=== PATIENT | female | born 1995 | race Caucasian/White ===

== ENCOUNTER 2024-04-04 10:27 | Outpatient (CLI) | payer OTHER, SELFPAY ==
--- NOTE | 2024-04-04 10:59 | ECG_ITS ---
Test Date: 2024-04-04 11:06:36 Measurements Intervals [place] Rate: 70 P: 65 IN: 127 QRS: 78 QRSD: 92 T: 55 QT: 356 QTc: 386 Interpretive Statements SINUS RHYTHM WITH SINUS ARRHYTHMIA POSSIBLE RIGHT VENTRICULAR CONDUCTION DELAY [RSR (QR) IN V1/V2] WITHIN NORMAL LIMITS No previous ECG available for comparison Electronically Signed On 04-05-2024 07:21:35 CDT by Charanjit Camilo M.D.
[2024-04-04 11:22] LABS: Basophils Percent Auto 0.3 % (0.2-1.2); Eosinophils Absolute Auto 0.1 K/mm3 (0-0.3); Hematocrit 37.4 % (37.0-47.0); Hemoglobin 13.2 g/dL (12.0-15.0); Immature Granulocyte Absolute 0.03 K/mm3 (0.00-0.031); Immature Granulocyte Percent A 0.4 % (0-0.5); Lymphocytes Absolute Auto 1.57 K/mm3 (0.9-3.2); Lymphocytes Percent Auto 21.4 % (18.3-44.2); Mean Corpuscular HGB Conc 35.3 g/dl (32-36); Mean Corpuscular Volume 90.6 fl (80-100); Mean Platelet Volume 10.1 fl (7.4-10.4); Monocytes Absolute Auto 0.5 K/mm3 (0.1-0.6); Monocytes Percent Auto 7.3 % (2.6-8.5); Neutrophils Absolute Auto 5.1 K/mm3 (1.3-6.7); Neutrophils Percent Auto 69.6 % (45.5-73.1); Platelet Count Result 166 k/mm3 (150-375); Red Blood Count 4.13 M/mm3 (4.2-5.4); Red Cell Distribution Width 13.2 % (11.5-14.5); White Blood Count 7.4 K/mm3 (4.5-10.0)
[2024-04-04 11:36] LABS: Alanine Aminotransferase 13 U/L (6-35); Albumin Level 4.1 g/dL (3.5-5.1); Alkaline Phosphatase 42 U/L (38-126); Anion Gap 7 mmol/L (4-12); Aspartate Amino Transferase 23 U/L (14-36); Bilirubin,Total 0.4 mg/dL (0.2-1.3); Blood Urea Nitrogen 9 mg/dL (7-17); Calcium 9.2 mg/dL (8.4-10.2); Carbon Dioxide 26 mmol/L (22-30); Chloride 101 mmol/L (98-107); Estimated Glomerular Filt Rate > 60; Glucose 80 mg/dL (65-110); Potassium 4.2 mmol/L (3.4-5.0); Sodium 134 mmol/L (137-145)
[2024-04-04 11:48] LABS: Hemoglobin A1C 4.6 % (<5.7)
[2024-04-04 12:03] LABS: Thyroid Stimulating Hormone 0.387 uIU/mL (0.465-4.680)
[2024-04-04 12:12] LABS: HIV 1/2 Ab P24 Ag Result Negative (Negative)
[2024-04-04 12:14] LABS: Free T4 Free Thyroxine 1.16 ng/mL (0.78-2.19)
[2024-04-04 12:38] LABS: Hepatitis B Surface Anti Res Negative; Hepatitis C Virus Antibody Negative (Negative)
[2024-04-04 13:09] LABS: Rubella IgG Antibody > 120.0 IU/ML
[2024-04-04 16:07] LABS: Rapid Plasma Reagin Non-Reactive (NonReactive)
== END 2024-04-04 10:28 | disposition home or self-care (01) ==
LOC: ANHLAB 10:39
PROVIDERS: Visit Provider Obstetrics & Gynecology Gynecology
DX: Z36.9 Encounter for antenatal screening, unspecified (principal); R00.2 Palpitations
CPT/HCPCS: 36415; 80053; 82306; 82728; 83036; 84439; 84443; 85025; 86592; 86703; 86706; 86762; 86803; 86850; 86900; 86901; 93005; G0432

== ENCOUNTER 2024-05-02 15:49 | Outpatient (CLI) | payer BC, SELFPAY ==
--- NOTE | ~2024-05-02 | US_ITS ---
EXAMINATION: US OB /maternal detail DATE: 05/02/2024 16:36 INDICATION: anatomic survey. TECHNIQUE: Real-time ultrasound of the pelvis was performed. COMPARISON: None. FINDINGS: There is a single living fetus in breech presentation. The placenta is anterior, 7.5 cm from the cer vix. heart rate is 147 beats per minute (bpm). The cervical length is 3.0 cm on transabdominal images, which is normal. The amniotic fluid volume is subjectively normal. The following biometric data were obtained: Biparietal diameter (BPD): 4.4 cm; head circumference (HC): 16.1 cm; abdominal circumference (AC): 13 .1 cm; femur length (FL): 2.6 cm. These measurements are concordant. Estimated weight is 236 g +/- 35 g, which correlates with the 26th percentile when 09/28/24 is u sed as estimated date of delivery. As single measurements, these parameters are each equal to the following estimated gestational ages: BPD: 19 weeks 1 days. HC: 18 weeks 6 days. AC: 18 weeks 4 days. FL: 17 weeks 6 days. estimated gestational age based solely on measurements from this exam is 18 weeks 4 days +/- 1 weeks 2 days. The cerebral ventricles, cerebellum, cisterna magna, nuchal fold, and spine are normal. The heart is normal. The diaphragm, stomach, kidneys, and bladder are normal. There are two umbilical arteries to yield a 3-vessel cord. The cord insertion is normal. IMPRESSION: 1. Single living fetus in breech presentation. 2. Estimated weight is 236 g +/- 35 g, which correlates with the 26th percentile when 09/28/24 is used as estimated date of delivery. 3. Normal anatomic survey. Reviewed, dictated and finalized at location A. IMPRESSION: 1. Single living fetus in breech presentation. 2. Estimated weight is 236 g +/- 35 g, which correlates with the 26th pe rcentile when 09/28/24 is used as estimated date of delivery. 3. Normal anatomic survey.
== END 2024-05-02 15:50 | disposition home or self-care (01) ==
PROVIDERS: PCP Advanced Practice Midwife; Visit Provider Advanced Practice Midwife
DX: Z36.9 Encounter for antenatal screening, unspecified (principal); Z3A.18 18 weeks gestation of pregnancy
CPT/HCPCS: 76805

== ENCOUNTER 2024-07-13 13:52 | Observation (INO) | payer BC, SELFPAY ==
--- NOTE | 2024-07-13 13:52 | LDADM ---
This patient, Rosibel Middleton, was admitted to [facility] on 07/13/24 at 13:52. Plans for labor, pain management and were discussed with patient. Patient/family oriented to hospital policies and general routines including ID bracelet, bed and alarms, visiting hours, pain management, procedures, bathroom and other care routines, personal items, smoking policy, room service/diet and guest tray routines, infant security routines, and visiting hours. Patient/Family are encouraged to report perceived risks to care and to ask questions if they do not understand what they are told or what they should do. See OBIX for further documentation.
--- NOTE | 2024-07-13 14:15 | PC.NURSE ---
Pt report that thursday around 1999 she started having upset stomach and felt like she need to have a bowel movement. Pt then reported that she threw up Q2hr all night long thursday night. Pt denies ever having a fever despite feeling feverish. Pt recently got home from traveling from [place] via airplane. Today pt reports feeling drained, she denies puking, has occasional nausea.
[2024-07-13 14:18] VITALS: BP 134/73; PULSE 84
--- NOTE | 2024-07-13 14:27 | PC.NURSE ---
Hyun CNM returned pt. CNM notified of pt feeling feverish, nausea and vomiting. Pt denies having a fever and has not thrown up today. Order received for CMP, CBC and UA. Order for 4mg Zofran OTD received as well.
[2024-07-13 14:31] VITALS: BP 128/65; PULSE 81
[2024-07-13] MEDS: ONDANSETRON HCL ODT 4 MG TABLET PO (14:36)
[2024-07-13 14:46] VITALS: BP 121/73; PULSE 85
[2024-07-13 14:47] VITALS: BP 134/73; PULSE 85
[2024-07-13 14:56] LABS: Basophils Percent Auto 0.1 % (0.2-1.2); Eosinophils Absolute Auto 0.1 K/mm3 (0-0.3); Eosinophils Percent Auto 0.8 % (0-4.4); Hematocrit 36.1 % (37.0-47.0); Hemoglobin 12.6 g/dL (12.0-15.0); Immature Granulocyte Absolute 0.07 K/mm3 (0.00-0.031); Immature Granulocyte Percent A 0.8 % (0-0.5); Lymphocytes Absolute Auto 1.29 K/mm3 (0.9-3.2); Lymphocytes Percent Auto 15.4 % (18.3-44.2); Mean Corpuscular HGB Conc 34.9 g/dl (32-36); Mean Corpuscular Hemoglobin 32.1 pg (26-34); Mean Corpuscular Volume 91.9 fl (80-100); Mean Platelet Volume 10.4 fl (7.4-10.4); Monocytes Absolute Auto 0.7 K/mm3 (0.1-0.6); Monocytes Percent Auto 8.5 % (2.6-8.5); Neutrophils Absolute Auto 6.2 K/mm3 (1.3-6.7); Neutrophils Percent Auto 74.4 % (45.5-73.1); Platelet Count Result 147 k/mm3 (150-375); Red Blood Count 3.93 M/mm3 (4.2-5.4); Red Cell Distribution Width 12.7 % (11.5-14.5); White Blood Count 8.4 K/mm3 (4.5-10.0)
[2024-07-13 15:05] LABS: Add Urine Microscopic? YES; Appearance Urine Cloudy (Clear); Bacteria Urine 3+ /hpf; Bilirubin Urine Negative (Negative); Blood Urine Negative (Negative); Color Urine Yellow (Yellow); Glucose Urine UA Negative (Negative); Ketones Urine Trace mg/dL (Negative); Leukocyte Esterase Ur 1+ LEU/UL (Negative); Nitrate Urine Negative (Negative); Non Pathogenic Casts 0-2; Protein Urine Negative (Negative); RBC Urine 0-2 /hpf (0-2); Specific Grav Ur 1.016 (1.001-1.035); Squamous Epithelial Cell Urine Few /hpf (Few)
[2024-07-13 15:25] LABS: Alanine Aminotransferase 13 U/L (6-35); Albumin Level 3.6 g/dL (3.5-5.1); Alkaline Phosphatase 70 U/L (38-126); Anion Gap 7 mmol/L (4-12); Aspartate Amino Transferase 25 U/L (14-36); Bilirubin,Total 0.5 mg/dL (0.2-1.3); Blood Urea Nitrogen 9 mg/dL (7-17); Calcium 8.7 mg/dL (8.4-10.2); Carbon Dioxide 23 mmol/L (22-30); Chloride 105 mmol/L (98-107); Estimated Glomerular Filt Rate > 60; Glucose 85 mg/dL (65-110); Potassium 3.8 mmol/L (3.4-5.0); Sodium 135 mmol/L (137-145)
--- NOTE | 2024-07-13 15:32 | PC.NURSE ---
Hyun CARSON updated on lab results and pt status update given. Order received for urine to reflex to culture. Order received for pt to go home with 4mg Zofran ODT, Discharge order received. Pt given precaution to come back if her symptoms get worse or she develops a fever or respiratory symptoms. Pt to see Hyun in the office later this week.
[2024-07-13 15:41] VITALS: BMI 26.0
--- NOTE | 2024-07-26 08:09 | P.PNOB_ITS ---
OB - Triage/Final Diagnosis Visit Information Date of evaluation: 07/13/24 Reason for evaluation: other (Nausea, vomiting, cramping) Comments/Additional reasons for admission: I have assessed the risk for this patient, Rosibel Middleton, and determined that she would benefit from observation care. Evaluation Laboratory results: Laboratory Tests 07/13/24 14:35 WBC 8.4 RBC 3.93 L Hgb 12.6 Hct 36.1 L MCV 91.9 MCH 32.1 MCHC 34.9 RDW 12.7 Plt Count 147 L MPV 10.4 Immature Gran % (Auto) 0.8 H Neut % (Auto) 74.4 H Lymph % (Auto) 15.4 L [place] % (Auto) 8.5 Eos % (Auto) 0.8 Baso % (Auto) 0.1 L Lymph # (Auto) 1.29 [place] # (Auto) 0.7 H Eos # (Auto) 0.1 Baso # (Auto) 0.0 Abs Immat Gran (auto) 0.07 H Absolute Neuts (auto) 6.2 Absolute Nucleated RBC 0.000 Nucleated RBC % 0.0 Sodium 135 L Potassium 3.8 Chloride 105 Carbon Dioxide 23 Anion Gap 7 BUN 9 Creatinine 0.60 L Estim Creat Clear Calc Not Reportable Estimated GFR > 60 Glucose 85 Calcium 8.7 Total Bilirubin 0.5 AST 25 ALT 13 Alkaline Phosphatase 70 Total Protein 7.0 Albumin 3.6 Urine Color Yellow Urine Appearance Cloudy H Urine pH 7.0 Ur Specific [place] 1.016 Urine Protein Negative Urine Glucose (UA) Negative Urine Ketones Trace H Ur Blood (Man) Negative Urine Nitrate Negative Urine Bilirubin Negative Urine Urobilinogen 1.0 Ur Leukocyte Esterase 1+ H Urine RBC 0-2 Urine WBC 11-20 H Ur Squamous Epith Cells Few Urine Bacteria 3+ H Urine Casts 0-2 Comments: Pt evaluated on unit by RN. Plan of care discussed with CNM. FHTs reassuring. VSS. No evidence of active labor or ROM.
== END 2024-07-13 15:55 | disposition home or self-care (01) ==
PROVIDERS: Admitting Provider Obstetrics & Gynecology Gynecology; PCP Advanced Practice Midwife; Visit Provider Obstetrics & Gynecology Gynecology
DX: O21.2 Late vomiting of pregnancy (principal); O26.893 Other specified pregnancy related conditions, third trimester; R10.9 Unspecified abdominal pain; Z3A.29 29 weeks gestation of pregnancy
CPT/HCPCS: 36415; 59025; 80053; 81001; 85025; 87086; 87088; A9270; G0378; G0379

== ENCOUNTER 2024-09-22 19:40 | Inpatient (IN) | payer BC, SELFPAY ==
[2024-09-22] VITALS (48 sets, daily range): BP systolic 83–171; BP diastolic 55–147; PULSE 65–115; TEMP 36.5; O2SAT 96–100; BMI 27.2
--- OUTSIDE RECORDS SUMMARY | 2024-09-22 20:06 | XMS_ITS | Data Portability ---
Author Organization [place] - [place] [employer], [id number]IP Address [address] [place] [address] Assessment No assessment recorded. Plan of Treatment Reminders Order Date Submit Date Provider Last Modified By Organization Details Last Modified Time Details Appointments None recorded. 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, [address], [address], [place], [address], 10:45:58 Referral None recorded. Procedures None recorded. Surgeries None recorded. Imaging None recorded. Medication Orders None recorded. Patient TargetsNo targets recorded. Patient Instructions Encounter Date Encounter Id Patient Instructions Last Modified By Organization Details Last Modified Time 03/25/2024 [id number] Pap smear and genital cultures performed, follow-up per results. New OB physical exam within normal limits. Dates appropriate for gestational age. Discussed routine OB precautions, education and questions answered. I had a agricultural commodities inspector present during all portions of the physical exam for this visit. Her name was Lisa. carreno Not available 03/25/2024 14:22:13 Reason for Referral None Reported. Results Created Date Observation Date Name Description Value Unit Range Abnormal Flag Note LastModifiedBy Organization Detail LastModifiedTime 03/04/2003/05/2024 PREGN AICHA, INITI AL SCREE N HBsAg screen Negati ve negati ve Not Available [facility] ([facility]) [address], [place], [address], 03/08/2024 10:16:26 03/04/2003/05/2024 PREGN AICHA, INITI AL SCREE N HCV Ab Non Reacti ve non reacti ve Not Available [facility] ([facility]) [address], [place], [address], 03/08/2024 10:16:26 03/04/20 24 03/05/2024 PREGN AICHA, INITI AL SCREE N interpretati on: Commen t Not infec kanika with HCV unles s early or acute infec tion is suspe cted (whic h may be delay ed in an immun ocomp romis ed indiv idual ), or other evide nce exist s to indic ate HCV infec tion. Not Available [facility] ([facility]) [address], [place], [address], 03/08/2024 10:16:26 03/04/20 24 03/05/2024 PREGN AICHA, INITI AL SCREE N RPR Non Reacti ve non reacti ve Not Available [facility] ([facility]) [address], [place], [address], 03/08/2024 10:16:26 03/04/20 24 03/05/2024 PREGN AICHA, INITI AL SCREE N rubella antibodies, IgG 20.60 index immune >0.99 Non-i mmune <0.90 Equiv ocal 0.90 - 0.99 Immun e >0.99 Not Available [facility] ([facility]) [address], [place], [address], 03/08/2024 10:16:26 03/04/20 24 03/05/2024 PREGN AICHA, INITI AL SCREE N ABO grouping O Not Available [facility] ([facility]) [address] [place], [address], 03/08/2024 10:16:26 03/04/20 24 03/05/2024 PREGN AICHA, INITI AL SCREE N Rh factor Positi ve Pleas e note: Prior recor ds for this patie nt's ABO / Rh type are not avail able for addit ional verif icati on. Not Available [facility] ([facility]) [address], [place], [address], 03/08/2024 10:16:26 03/04/20 24 03/05/2024 PREGN AICHA, INITI AL SCREE N antibody screen Negati ve negati ve Not Available [facility] ([facility]) [address], [place], [address], 03/08/2024 10:16:26 03/04/20 24 03/05/2024 PREGN AICHA, INITI AL SCREE N HIV Ab/P24 Ag screen Non Reacti ve non reacti ve HIV-1 /HIV- 2 antib odies and HIV-1 p24 antig en were NOT detec kanika. There is no labor atory evide nce of HIV infec tion. HIV Negat josue Not Available [facility] ([facility]) [address], [place], [address], 03/08/2024 10:16:26 03/04/20 24 03/05/2024 PREGN AICHA, INITI AL SCREE N chlamydia trachomatis, GWEN COMMEN T Test not perfo rmed. No speci men recei herve. Not Available [facility] ([facility]) [address], [place], [address], 03/08/2024 10:16:26 03/04/20 24 03/05/2024 PREGN AICHA, INITI AL SCREE N neisseria gonorrhoeae, GWEN COMMEN T Test not perfo rmed. No speci men recei herve. Not Available [facility] ([facility]) [address] [place], [address], 03/08/2024 10:16:26 03/04/20 24 03/05/2024 PREGN AICHA, INITI AL SCREE N WBC 7.5 x10e3 /uL 3.4-10 .8 normal Not Available [facility] ([facility]) [address] [place], [address], 03/08/2024 10:16:26 03/04/20 24 03/05/2024 PREGN AICHA, INITI AL SCREE N RBC 4.58 x10e6 /uL 3.77-5 .28 normal Not Available [facility] ([facility]) [address] [place], [address], 03/08/2024 10:16:26 03/04/20 24 03/05/2024 PREGN AICHA, INITI AL SCREE N hemoglobin 14.0 g/dL 11.1-1 5.9 normal Not Available [facility] ([facility]) [address] [place], [address], 03/08/2024 10:16:26 03/04/20 24 03/05/2024 PREGN AICHA, INITI AL SCREE N hematocrit 42.1 % 34.0-4 6.6 normal Not Available [facility] ([facility]) [address] [place], [address], 03/08/2024 10:16:26 03/04/20 24 03/05/2024 PREGN AICHA, INITI AL SCREE N MCV 92 fL 79-97 normal Not Available [facility] ([facility]) [address] [place], [address], 03/08/2024 10:16:26 03/04/20 24 03/05/2024 PREGN AICHA, INITI AL SCREE N MCH 30.6 pg 26.6-3 3.0 normal Not Available [facility] ([facility]) [address] [place], [address], 03/08/2024 10:16:26 03/04/20 24 03/05/2024 PREGN AICHA, INITI AL SCREE N MCHC 33.3 g/dL 31.5-3 5.7 normal Not Available [facility] ([facility]) [address] [place], [address], 03/08/2024 10:16:26 03/04/20 24 03/05/2024 PREGN AICHA, INITI AL SCREE N RDW 12.8 % 11.7-1 5.4 Not Available [facility] ([facility]) [address], [place], [address], 03/08/2024 10:16:26 03/04/20 24 03/05/2024 PREGN AICHA, INITI AL SCREE N platelets 187 x10e3 /uL 150-45 0 normal Not Available [facility] ([facility]) [address], [place], [address], 03/08/2024 10:16:26 03/04/20 24 03/05/2024 PREGN AICHA, INITI AL SCREE N neutrophils 69 % not estab. normal Not Available [facility] ([facility]) [address], [place], [address], 03/08/2024 10:16:26 03/04/20 24 03/05/2024 PREGN AICHA, INITI AL SCREE N lymphs 22 % not estab. normal Not Available [facility] ([facility]) [address], [place], [address], 03/08/2024 10:16:26 03/04/20 24 03/05/2024 PREGN AICHA, INITI AL SCREE N monocytes 7 % not estab. normal Not Available [facility] ([facility]) [address], [place], [address], 03/08/2024 10:16:26 03/04/20 24 03/05/2024 PREGN AICHA, INITI AL SCREE N eos 1 % not estab. normal Not Available [facility] ([facility]) [address], [place], [address], 03/08/2024 10:16:26 03/04/20 24 03/05/2024 PREGN AICHA, INITI AL SCREE N basos 0 % not estab. normal Not Available [facility] ([facility]) [address], [place], [address], 03/08/2024 10:16:26 03/04/20 24 03/05/2024 PREGN AICHA, INITI AL SCREE N immature cells CUSHION GUM APPLICATOR Not Available [facility] ([facility]) [address], [place], [address], 03/08/2024 10:16:26 03/04/20 24 03/05/2024 PREGN AICHA, INITI AL SCREE N neutrophils (absolute) 5.2 x10e3 /uL 1.4-7. 0 normal Not Available [facility] ([facility]) [address], [place], [address], 03/08/2024 10:16:26 03/04/20 24 03/05/2024 PREGN AICHA, INITI AL SCREE N lymphs (absolute) 1.6 x10e3 /uL 0.7-3. 1 normal Not Available [facility] ([facility]) [address] [place], [address], 03/08/2024 10:16:26 03/04/20 24 03/05/2024 PREGN AICHA, INITI AL SCREE N monocytes(ab solute) 0.5 x10e3 /uL 0.1-0. 9 normal Not Available [facility] ([facility]) [address] [place], [address], 03/08/2024 10:16:26 03/04/20 24 03/05/2024 PREGN AICHA, INITI AL SCREE N eos (absolute) 0.1 x10e3 /uL 0.0-0. 4 normal Not Available [facility] ([facility]) [address] [place], [address], 03/08/2024 10:16:26 03/04/20 24 03/05/2024 PREGN AICHA, INITI AL SCREE N baso (absolute) 0.0 x10e3 /uL 0.0-0. 2 normal Not Available [facility] ([facility]) [address], [place], [address], 03/08/2024 10:16:26 03/04/20 24 03/05/2024 PREGN AICHA, INITI AL SCREE N immature granulocytes 1 % not estab. Not Available [facility] ([facility]) [address], [place], [address], 03/08/2024 10:16:26 03/04/20 24 03/05/2024 PREGN AICHA, INITI AL SCREE N immature grans (abs) 0.0 x10e3 /uL 0.0-0. 1 Not Available [facility] ([facility]) [address], [place], [address], 03/08/2024 10:16:26 03/04/20 24 03/05/2024 PREGN AICHA, INITI AL SCREE N NRBC CUSHION GUM APPLICATOR Not Available [facility] ([facility]) [address], [place], [address], 03/08/2024 10:16:26 03/04/20 24 03/05/2024 PREGN AICHA, INITI AL SCREE N hematology comments: CUSHION GUM APPLICATOR Not Available [facility] ([facility]) [address], [place], [address], 03/08/2024 10:16:26 03/04/20 24 03/05/2024 PREGN AICHA, INITI AL SCREE N specific gravity COMMEN T Test not perfo rmed. No speci men recei herve. Not Available [facility] ([facility]) [address], [place], [address], 03/08/2024 10:16:26 03/04/20 24 03/05/2024 PREGN AICHA, INITI AL SCREE N pH COMMEN T Test not perfo rmed. No speci men recei herve. Not Available [facility] ([facility]) [address], [place], [address], 03/08/2024 10:16:26 03/04/20 24 03/05/2024 PREGN AICHA, INITI AL SCREE N urine-color COMMEN T Test not perfo rmed. No speci men recei herve. Not Available [facility] ([facility]) [address], [place], [address], 03/08/2024 10:16:26 03/04/20 24 03/05/2024 PREGN AICHA, INITI AL SCREE N appearance COMMEN T Test not perfo rmed. No speci men recei herve. Not Available [facility] ([facility]) [address], [place], [address], 03/08/2024 10:16:26 03/04/20 24 03/05/2024 PREGN AICHA, INITI AL SCREE N WBC esterase COMMEN T Test not perfo rmed. No speci men recei herve. Not Available [facility] ([facility]) [address] [facility], [place], [address], 03/08/2024 10:16:26 03/04/20 24 03/05/2024 PREGN AICHA, INITI AL SCREE N protein COMMEN T Test not perfo rmed. No speci men recei herve. Not Available [facility] ([facility]) [address], [place], [address], 03/08/2024 10:16:26 03/04/20 24 03/05/2024 PREGN AICHA, INITI AL SCREE N glucose COMMEN T Test not perfo rmed. No speci men recei herve. Not Available [facility] ([facility]) [address] [facility], [place], [address], 03/08/2024 10:16:26 03/04/20 24 03/05/2024 PREGN AICHA, INITI AL SCREE N ketones COMMEN T Test not perfo rmed. No speci men recei herve. Not Available [facility] ([facility]) [address] [facility], [place], [address], 03/08/2024 10:16:26 03/04/20 24 03/05/2024 PREGN AICHA, INITI AL SCREE N occult blood COMMEN T Test not perfo rmed. No speci men recei herve. Not Available [facility] ([facility]) [address] [facility], [place], [address], 03/08/2024 10:16:26 03/04/20 24 03/05/2024 PREGN AICHA, INITI AL SCREE N bilirubin COMMEN T Test not perfo rmed. No speci men recei herve. Not Available [facility] ([facility]) [address] [facility], [place], [address], 03/08/2024 10:16:26 03/04/20 24 03/05/2024 PREGN AICHA, INITI AL SCREE N urobilinogen ,semi-qn COMMEN T mg/dL Test not perfo rmed. No speci men recei herve. Not Available [facility] ([facility]) [address] [facility], [place], [address], 03/08/2024 10:16:26 03/04/20 24 03/05/2024 PREGN AICHA, INITI AL SCREE N nitrite, urine COMMEN T Test not perfo rmed. No speci men recei herve. Not Available [facility] ([facility]) [address] [place], [address], 03/08/2024 10:16:26 03/04/20 24 03/05/2024 PREGN AICHA, INITI AL SCREE N microscopic examination COMMEN T Test not perfo rmed. No speci men recei herve. Not Available [facility] ([facility]) [address] [place], [address], 03/08/2024 10:16:26 03/04/20 24 03/05/2024 PREGN AICHA, INITI AL SCREE N microscopic examination COMMEN T Test not perfo rmed. No speci men recei herve. Not Available [facility] ([facility]) [address] [facility] [address] [facility], [place], [address], 03/08/2024 10:16:26 03/04/20 24 03/07/2024 PREGN AICHA, INITI AL SCREE N urine culture,pren atal, w/gbs Final report Not Available [facility] ([facility]) [address] [facility] [address] [facility], [place], [address], 03/08/2024 10:16:26 03/04/20 24 03/07/2024 PREGN AICHA, INITI AL SCREE N result 1 COMMEN T Mixed uroge nital gena 25,00 0-50, 000 colon y formi ng units per mL Not Available [facility] ([facility]) [address] [facility] [address] [facility], [place], [address], 03/08/2024 10:16:26 03/04/20 24 03/05/2024 VARIC ASHLEE- ZOSTE R V AB, IGG varicella zoster IgG 220 index immune >165 Negat josue <135 Equiv ocal 135 - 165 Posit josue >165 A posit josue resul t gener ally indic ates expos ure to the patho gen or admin istra tion of speci fic immun oglob ulins , but it is not indic ation of activ e infec tion or stage of disea se. Not Available [facility] ([facility]) [address] [facility] [address] [facility], [place], [address], 03/08/2024 10:16:29 03/04/20 24 03/08/2024 URINE CULTU RE, ROUTI NE urine culture, routine Final report Not Available [facility] ([facility]) [address] [facility] [address], [place], [address], 03/08/2024 10:16:32 03/04/20 24 03/08/2024 URINE CULTU RE, ROUTI NE result 1 No growth Not Available [facility] ([facility]) [address] [facility] [address] [facility], [place], [address], 03/08/2024 10:16:32 03/04/20 24 03/05/[address] PROBL EM request problem COMMEN T Test not perfo rmed. No speci men recei herve. TEST: [id number] Chlam ydia trach omati s, GWEN Panel : [id number] 3 04128 6 Neiss eria gonor rhoea e, GWEN Panel : 62329 3 80801 0 Speci fic Gravi ty Panel : [id number] 3 94465 8 pH Panel : 01615 3 05209 5 Urine -Lindsay r Panel : 87856 3 31487 2 Appea glenn Panel : 02259 3 38218 5 WBC Nette ase Panel : 68707 3 02059 4 Prote in Panel : 98138 3 16686 6 Gluco se Panel : 01262 3 82312 0 Keton es Panel : 80356 3 97834 2 Occul t Blood Panel : 00311 3 71190 4 Bilir ubin Panel : 32553 3 20543 5 Urobi linog en,Se mi-Qn Panel : 53531 3 39165 6 Nitri te, Urine Panel : 51582 3 38558 7 Micro scopi c Exami natio n Panel : 75644 3 47210 6 Micro scopi c Exami natio n Panel : 21785 3 Not Available [facility] ([facility]) [address] [facility] [address] [facility], [place], [address], 03/08/2024 10:16:35 03/07/20 24 03/07/2024 PANOR AMA PRENA JAMEL TEST report summary LOW RISK normal LOW RISK Not Available [facility] [address], [place], [address], 03/14/2024 10:46:07 03/07/20 24 03/07/2024 PANOR AMA PRENA JAMEL TEST report note See Notes normal Not Available [facility] [address], [place], [address], 03/14/2024 10:46:07 07/29/20 24 03/07/2024 PANOR AMA PRENA JAMEL TEST trisomy 13 age-based risk text 62 1 (0.02% ) normal Not Available [facility] [address], [place], [address], 03/14/2024 10:46:07 03/07/20 24 03/07/2024 PANOR AMA PRENA JAMEL TEST trisomy 13 risk score text <1/10, 000 (<0.01 %) normal Not Available [facility] [address], [place], [address], 03/14/2024 10:46:07 03/07/20 24 03/07/2024 PANOR AMA PRENA JAMEL TEST trisomy 13 result text Low Risk normal Not Available [facility] [address], [place], [address], 03/14/2024 10:46:07 03/07/20 24 03/07/2024 PANOR AMA PRENA JAMEL TEST trisomy 18 age-based risk text 76 5 (0.06% ) normal Not Available [facility] [address], [place], [address], 03/14/2024 10:46:07 03/07/20 24 03/07/2024 PANOR AMA PRENA JAMEL TEST trisomy 18 risk score text <1/10, 000 (<0.01 %) normal Not Available [facility] [address], [place], [address], 03/14/2024 10:46:07 03/07/20 24 03/07/2024 PANOR AMA PRENA JAMEL TEST trisomy 18 result text Low Risk normal Not Available [facility] [address], [place], [address], 03/14/2024 10:46:07 03/07/20 24 03/07/2024 PANOR AMA PRENA JAMEL TEST trisomy 21 age-based risk text 0 (0.11% ) normal Not Available [facility] [address], [place], [address], 03/14/2024 10:46:07 03/07/20 24 03/07/2024 PANOR AMA PRENA JAMEL TEST trisomy 21 risk score text <1/10, 000 (<0.01 %) normal Not Available [facility] [address], [place], [address], 03/14/2024 10:46:07 03/07/20 24 03/07/2024 PANOR AMA PRENA JAMEL TEST trisomy 21 result text Low Risk normal Not Available [facility] [address], [place], [address], 03/14/2024 10:46:07 03/07/20 24 03/07/2024 PANOR AMA PRENA JAMEL TEST monosomy X age-based risk text 1/255 (0.39% ) normal Not Available [facility] [address], [place], [address], 03/14/2024 10:46:07 03/07/20 24 03/07/2024 PANOR AMA PRENA JAMEL TEST monosomy X risk score text <1/10, 000 (<0.01 %) normal Not Available [facility] [address], [place], [address], 03/14/2024 10:46:07 03/07/20 24 03/07/2024 PANOR AMA PRENA JAMEL TEST monosomy X result text Low Risk normal Not Available [facility] [address], [place], [address], 03/14/2024 10:46:07 03/07/20 24 03/07/2024 PANOR AMA PRENA JAMEL TEST 22Q11.2 deletion syndrome population-b ased risk text 2,00 0 normal Not Available [facility] [address], [place], [address], 03/14/2024 10:46:07 03/07/20 24 03/07/2024 PANOR AMA PRENA JAMEL TEST 22Q11.2 deletion syndrome risk score text 08/21,0 00 normal Not Available [facility] [address], [place], [address], 03/14/2024 10:46:07 03/07/20 24 03/07/2024 PANOR AMA PRENA JAMEL TEST 22Q11.2 deletion syndrome result text Low Risk normal Not Available [facility] [address], [place], [address], 03/14/2024 10:46:07 03/07/20 24 03/07/2024 PANOR AMA PRENA JAMEL TEST triploidy result text Low Risk normal Not Available [facility] [address], [place], [address], 03/14/2024 10:46:07 03/07/20 24 03/07/2024 PANOR AMA PRENA JAMEL TEST gender of fetus Female Not Available [facility] [address], [place], [address], 03/14/2024 10:46:07 03/07/20 24 03/07/2024 PANOR AMA PRENA JAMEL TEST fraction 7.4% Not Available [facility] [address], [place], [address], 03/14/2024 10:46:07 03/07/20 24 03/07/2024 PANOR AMA PRENA JAMEL TEST rhesus factor status not assess ed The pregn ant patie nt is likel y RhD posit josue and there fore, the statu s is not asses sed. Reaso ns for an RhD posit josue resul t inclu de RhD posit josue, Weak D, Parti al D (e.g. DVI), or other rare RhD genot ype. Refer to pregn ant patie nt's serol ogy resul t for RhD manag ement . A repea t speci men is not indic ated. Not Available [facility] [address], [place], [address], 03/14/2024 10:46:07 03/07/20 24 03/07/2024 SHERWIN MCCULLOUGH TEST footnotes See Notes Testi ng Metho dolog y DNA isola kanika from mater nal blood , which conta ins place ntal DNA, is ampli fied at speci fic loci using a targe kanika PCR assay and is seque nced using a high- throu ghput seque ncer. fract ion is deter mined using a propr ietar y algor ithm incor porat ing data from singl e nucle otide polym orphi sm-ba sed (SNP- based ) next- gener ation seque ncing [Richie Nguyen et al. Obste t Gynec ol. 2013;1 24(2 Pt 1):21 0-8]. If there is suffi cient fract ion, seque ncing data is syed zed using a propr ietar y SNP-b ased algor ithm to deter mine the copy numbe r for chrom osome s 13, 18, 21, X and Y. If order ed, speci fic micro delet ions will be evalu ated using simil ar metho yesenia y [Wapn er RJ et al. Am J Obste t Gynec ol. 2015 Oct;2 12(3) :332. e1-9] . If the fract ion is insuf ficie nt, signa l enhan cemen t and/o r an addit ional algor ithm to deter mine wheth er there is an incre ased risk for tripl oidy, triso my 18, and triso my 13 may be utili zed [Ochoa caraballo et al. Ultra sound Obste t Gynec ol 2019; 53:73 -79]. Howev er, some sampl es will not produ ce a resul t due to failu re to meet the neces laly quali ty thres holds . This test has been valid ated on women with a singl eton, twin or egg donor pregn aicha of at least nine weeks gesta tion. A resul t will not be avail able for highe r order multi ples and multi ple gesta tion pregn ancie s with an egg donor or surro gate, or bone marro w trans plant recip ients . Compl ete test panel is not avail able for twin gesta tions and pregn ancie s achie herve with an egg donor or surro gate. For twin pregn ancie s with a fract ion value below the thres hold for syed sis, a sum of the fract ions for both twins will be repor kanika. As this assay is a scree sukh test and not diagn ostic , false posit sobeida and false negat sobeida can occur . High risk test resul ts need diagn ostic confi rmati on by alter nativ e testi ng metho ds. Low risk resul ts do not fully exclu de the diagn osis of any of the syndr omes nor do they exclu de the possi bilit y of other chrom osoma l abnor malit ies or defec ts, which are not a part of this test. Poten tial sourc es of inacc urate resul ts inclu de, but are not limit ed to, mosai cism, low fract ion, limit ation s of curre nt diagn ostic techn iques , or misid entif icati on of sampl es. This test will not ident danny all delet ions assoc iated with each micro delet ion syndr ome. This test has been valid ated for delet ions > = 0.5 Mb withi n the 22q11 .2 A-D regio n. This test has been valid ated on full regio n delet ions only for 1p36 delet ion syndr ome, Cri-d u-justen t syndr ome, Prade r Willi syndr ome and Mega man syndr ome and may be unabl e to detec t small er delet ions. Micro delet ion risk score may be depen dent upon fract ion, as delet ions on the mater ivan inher ited copy are diffi cult to ident danny at lower fract ions. Test resul ts shoul d alway s be inter prete d by a clini david in the jack xt of clini josué and famil ial data with the avail [place] couns [place] when appro priat e. ----- ----- ----- - Discl aimer s The extra ction , omero ry prepa ratio n, and seque ncing of this test were perfo rmed by [employer] [address], [place] [address] (CLIA ID [id number] ). The data syed sis and repor ting of this test were perfo rmed by [employer] [address], [place] [address] (CLIA ID [id number] ). The perfo rmanc e luisito cteri stics of this test were devel oped by [employer] CLIA ID [id number] ). This test has not been clear ed or appro herve by the U.S. Food and Drug Admin istra tion (FDA) . These labor atori es are regul ated under CLIA as quali fied to perfo rm high- compl exity testi ng. 2020 [employer] All Right s Reser herve. Pleas e refer to the attac hed PDF repor t Revie wed By: Rolando Ramirez M.D., Ph.D. , FAC , [facility] Direc tor CLIA Lab Direc tor: Hermelinda Almodovar, Ph.D. , FACMG IF THE ORDER ING PROVI GARRISON HAS QUEST IONS OR WISHE S TO DISCU SS THE RESUL TS, PLEAS E CONTA CT US AT [phone] #3. Ask for the NIPT khai ic couns elor end user consultant. Not Available linkedü [address], [place], [address], 03/14/2024 10:46:07 03/25/20 24 03/25/2024 PAP + CT/NG W REFLE X HRHPV AND GENOT YPE (+ ) FOR ASCUS OR LSIL other info Other Inform ation Case Comme nts :Acco rding to ASCCP guide lines early repea t pap smear evalu ation is not recom eda d for a negat josue pap in the absen ce of an endoc ervic al compo nent as it does not affec t the rate of HSIL detec tion. Clini Lynne fo :Jocelyn walls scree sukh Elect lorenzo gaytan wilman d by : Gale souza Natalia CT (ASCP ) on :03/11 09:31 :30 AM Not Available [facility] [address], [place], [address], 04/04/2024 10:18:06 03/25/20 24 04/04/2024 PAP + CT/NG W REFLE X HRHPV AND GENOT YPE (16+ 18/45 ) FOR ASCUS OR LSIL cervix,thinp rep vial Cervi x,Thi nPrep Vial See Adequ acy Comme nt Speci men Adequ acy :Sati sfact ory for evalu ation . No endoc ervic al and/o r metap lasti c compo nent seen. NEGAT JOSUE FOR INTRA EPITH ELIAL LESIO N OR MALIG BERNARDA Not Available [facility] [address], [place], [address], 04/04/2024 10:18:06 03/25/20 24 04/04/2024 PAP + CT/NG W REFLE X HRHPV AND GENOT YPE (16+ 18/45 ) FOR ASCUS OR LSIL chlamydia result Negati ve Not Available [facility] [address], [place], [address], 04/04/2024 10:18:06 03/25/20 24 04/04/2024 PAP + CT/NG W REFLE X HRHPV AND GENOT YPE (16+ 18/45 ) FOR ASCUS OR LSIL gonorrhea result Negati ve Not Available [facility] [address], [place], [address], 04/04/2024 10:18:06 02/22/20 24 02/22/2024 ultra sound image s RAD [email or web address] [facility] [employer] [facility] [id number] 02/22/2024 12:26:19 02/22/20 US, obste tric No observ ation record ed. [email or web address] Not Available 02/21 12:27:31 Result Notes None recorded. Problems Name Problem SNOMED Code Status Onset Date Resolution Date Notes Provider Name and Address Organization Details Recorded Time 80248705 Completed 202303/28/2024 Bernarda Hurtado [facility] 12:16:49 Genetic screening for disorder Completed Desires NIPT: low risk, female Declined CS DAKOTA-FRANCIS FERNANDEZ, SPEECH LANGUAGE PATHOLOGY ASSISTANT [address], [address], [place], [address], [facility] 4 11:56:17 Migraine 85379546 Completed w/aura Dragan Price [facility] 4 09:49:09 Problem Notes None recorded. Procedures Surgical History Date Name Laterality Status Provider Name and Address Organization Details Recorded Time 08/10/19 Date of Last Pap Smear completed Dragan Price [facility] 03/04/2024 09:42:51 Appendectomy completed Margret Bustamante [facility] 02/26/2024 11:23:55 Imaging Results Imaging Date Name Status LastModified by Organiz ation Details LastModified Time 02/22/2024 ultrasound images completed [email or web address] [facility] [facility] [id number] 02/22/2024 12:26:19 02/22/2024 US, obstetric completed [email or web address] Information not available 02/22/2024 12:27:31 Procedure Notes None recorded. Medical Equipment None Reported. Allergies No known drug allergies Medications Name Sig Start Date Stop Date Status Note LastModified by Organization Details LastModified Time dicyclomine 20 mg tablet TAKE 1 TABLET BY MOUTH FOUR TIMES DAILY NEEDED FOR UP TO 7 DAYS 03/04 completed Not Available Not Available Not Available ondansetron 4 mg disintegrat ing tablet DISSOLVE 1 TABLET ON THE TONGUE EVERY 6 HOURS NEEDED FOR NAUSEA OR VOMITING FOR UP TO 7 DAYS 03/04 completed Not Available Not Available Not Available PreNata active Not Available Not Avail able Not Available Vitals Date Recorded Body weight Body mass index (BMI) Body height Systolic blood pressure Diastolic blood pressure Provider Name and Address Organization Details Last Updated DateTime 03/04/2024 93706.41 g 23.7 kg/m2 172.72 cm 122 mm[Hg] 60 mm[Hg] Katarina Dubon [facility] 4 09:16:38 Date Recorded Body height Body mass index (BMI) Body weight Systolic blood pressure Diastolic blood pressure Provider Name and Address Organization Details Last Updated DateTime 03/25/2024 172.72 cm 24.3 kg/m2 12962.78 g 122 mm[Hg] 70 mm[Hg] Yo Correa [facility] 4 14:04:07 Social History Question Answer Notes LastModified by Organizat ion Details LastModified Time Tobacco Smoking Status Never Smoker Margret sharma [facility] 02/26/2024 11:27:11 Do You Have An Advance Directive? No Information not available 03/04/2024 What Is Your Level Of Alcohol Consumption? None Information not available 03/04/2024 Is Blood Transfusion Acceptable In An Emergency? Yes Information not available 03/04/2024 What Is Your Level Of Caffeine Consumption? Occasional Information not available 02/26/2024 Are You Currently Employed? Yes Information not available 03/04/2024 What Type Of Diet Are You Following? 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 3-4 Times Per Week Information not available 03/04/2024 How Many Times In The Past Year Have You Used An Illegal Drug Or Used A Prescription Medication For Nonmedical Reasons? 0 Information not available 03/04/2024 How Many Years Have You Used Illicit Or Recreational Drugs? 8 Information not available 03/04/2024 Spouses/Partners Name: Naseem higuera Information not available 02/26/2024 Have You Ever Been Or Currently Are A Victim Of Sexual Abuse? No Information not available 03/04/2024 Have You Ever Been Or Currently Are A Victim Of Physical Abuse? No Information not available 03/04/2024 Have You Ever Been Or Currently Are A Victim Of Emotional Abuse? No Information not available 03/04/2024 What Was The Date Of Your Most Recent Tobacco Screening? 03/04/2024 Information not available 03/04/2024 What Is Your Relationship Status? Information not available 02/26/2024 Do You Use Any Illicit Or Recreational Drugs? Yes Marijuana -last Used 12/2023barra1 Information not available 03/04/2024 Has Tobacco Cessation Counseling Been Provided? No Information not available 03/04/2024 Have You Used IV Drugs? No Information not available 03/04/2024 Are You Currently In School? No Information not available 03/04/2024 Do You Or Have You Ever Used Any Other Forms Of Tobacco Or Nicotine? No Information not available 03/04/2024 Sex: Unknown Functional Status Question Answer Note LastModified by Organization D etails LastModified Time What is your exercise level? Moderate [email or web address] Information not available 03/04/2024 Mental Status None recorded. Family History Relationship Description Onset Age of this Age Resolved Age Notes LastModified by Organization Details LastModified Time Paternal Grandmother Malignant tumor of breast [email or web address] Not available 2023 11:21:51 Mother Diabetes mellitus [email or web address] Not available 2023 11:22:10 Mother Hypertensive disorder [email or web address] Not available 2023 11:22:23 Maternal Grandfather Diabetes mellitus [email or web address] Not available 2023 11:22:10 Maternal Grandfather Dementia [email or web address] Not available 02/07 11:22:37 Maternal Aunt Disorder of thyroid gland [email or web address] Not available 2023 11:22:55 Medical History Condition Response Neurology- Headaches/Migraines Y Urology- Urinary Incontinence Y Gynecological History Statement/Question Response Do you have history of sexual trauma? N Date of LMP 12/26/2023 History of Sexually Transmitted Infectio n N History of HPV N HPV Vaccine Not applicable History of abnormal PAP N Date of Last Pap Smear 08/10/2022 Age at Menarche 16 History of Endometriosis N Obstetrics History GPAL:G 1 P 0 0 0 0 Past Encounters Encounter ID Performer Location Encounter Start Date Encounter Closed Date Diagnosis/Indication Diagnosis SNOMED-CT Code Diagnosis ICD10 Code Diagnosis Note [id number] DOREEN FERNANDEZ, CUCA [id number] [facility] [address] [place] [address] 03/04/2024 09:02:22 03/04/2024 09:55:09 Routine care 322707720 Z34.81 [id number] YAYO JOSEPH MD [id number] [facility] [address] [place] [address] 03/25/2024 13:56:37 03/25/2024 14:22:38 Routine care 960501636 Z34.02 Z34.03 Z34.82 Z34.83 Health Concerns Section Related Observation LastModified by Organization Detai ls LastModified Time None Recorded Concern Status LastModified by Organization Details LastModified Time None Recorded Advance Directives Directive N: Payers Encounter Date Sequence Insurance Name Policy Number Policy Atkins Covered Member ID Atkins Member ID Guarantor Name 03/04/2024 1 [employer] (PPO) [id number] Rosibel A Emi [id number] Rosibel Emi 03/25/2024 1 [employer]PP[employer] [id number] Rosibel A Emi [id number] 1 [facility] OBGyn Episode Ob Episode Information Episode Created Date Number of Fetuses Patient Bloodtype Patient rh Status Prepregnancy Weight lbs Domestic Partner Domestic Partner Phone Father Name Salesperson Yard Goods Status 02/22/20 24 1 O Positive 151 Naseem West[place] l CLOSED Fetus Data First Name Last Name Admitted to NICU Weight (g) Sex Living Outcome Pediatric Complications Fetus ID Race Codes Race Delivery Type [id number] Problems Problem Notes Problem Name Start Date End Date Resolution Snomed Code Not e Migraine [id number] w/aura Genetic screening for disorder 063594811 Desires NIPT: l ow risk, femaleDeclined CS Bebeto Calculation Initial Bebeto Date Initial Exam Date Initial Exam Provider Initial Ultrasound Date Last Menstrual Period Date Ultra Sound Weeks Gestation 02/22/2024 02/22/2024 12/26/2023 8 Eighteen To Twenty Week Bebeto Update Ultra Sound Date Fundal Height At Umbil Quickening Date Ultra Sound Latest Weeks Gestation Final Bebeto Confirmed By Final Bebeto Confirmed Date Final Bebeto Date Ultra Sound Latest Days Gestation 0 [email or web address] 02/22/2024 10/01/19 25 0 Pre- Flowsheet Flowsheet Date 03/04/2024 Hull Score Blood Edema Fundus Height Fundus Units Glucose Ketones Leukocytes Nitrite Labor Signs Protein Cervic Dilation Cervic Effacement Cervic Station none neg Type Weight in lbs Pre/Post Dialysis Refused Weight 156.018902116548 BP Diastolic BP Location Tested BP Systolic BP Type 60 122 Fetus Heart Rate Present Fetus Movement Comments NOB Interview. MYLENE brochure given and reviewed, and Notice form signed. Reviewed genetic carrier and aneuploidy testing. Desires NIPT and Declines all carrier testing as would not terminate under any circumstance. NIPT kit provided/Referral form completed. Discussed 1st trimester education, COVID vaccine and Zika. NOB PE scheduled w/.JORGE. NNAMDI RODAS. Flowsheet Date 03/25/2024 Hull Score Blood Edema Fundus Height Fundus Units Glucose Ketones Leukocytes Nitrite Labor Signs Protein Cervic Dilation Cervic Effacement Cervic Station 12 wks none neg 0cm 0% -4 Type Weight in lbs Pre/Post Dialysis Refused Weight 160.951659109002 BP Diastolic BP Location Tested BP Systolic BP Type 70 122 Fetus Heart Rate Present A 156 Present Fetus Movement A No Comments New OB physical exam perform ed today normal breast, abdominal and pelvic exam. Uterus normal size for 12 weeks and cervix long thick and closed. Pap smear performed. Menstrual History Last Menstrual Date Menses Monthly On Bcp Conception Prior Menses Frequency Hcg Plus Date Menarche Onset Age 0512/26/2023 true false 29 4 15 Genetic Screening And Infection History Question Response Note Muscular Dystrophy false Other Inherited Genetic Or Chromosomal Disorder false Patient Or Baby's Father Had A Child With Defects Not Listed Above false Recurrent Loss, Or A Stillbirth false Live With Someone With TB Or Exposed To TB false Rash Or Viral Illness Since Last Menstrual Perio d false Thalassemia (Australian, Bulgarian, Mediterranean, Or Background): MCV < 80 false Neural Tube Defect (Meningomyelocele, Spina Bifi da, Or Anencephaly) false Down Syndrome false If Yes, Was Person Tested For Fragile X? false Any Other Genetic History false History Of STD, Gonorrhea, Chlamydia, HPV, Syphi lis false Hemophilia Or Other Blood Disorders false Mental Retardation/Autism false If Yes, Agent(s) And Strength/Dosage false Patient's Age Will Be 35 Years Or Older At Estim ated Date of Delivery false Congenital Heart Defect false Pepe Disease false Sickle Cell Disease Or Trait () false [place]'s Chorea false Maternal Metabolic Disorder (eg, Type 1 Diabetes , PKU) false Patient Or Partner Has History Of Genital Herpes false History of Hepatitis B, C or HIV false Lorenzo-Sachs (eg, Zoroastrianism, Cajun, Bermudian-Mexican) f alse Cystic Fibrosis false Medications (including Suppl ements, Vitamins, Herbs, OTC Drugs), Illicit/Recreational Drugs, Alcohol true PNV Other Infection History false History of HIV false History of Hepatitis false Prior GBS-infected child false Plans and Education First Trimester Discussed Date Discussion Item Discussion Note Discuss ed By 03/04/2024 Anticipated course of care [facility]03/04/2024 Alcohol 03/04/2024 Environmental/work hazards f arr03/04/2024 Screening for aneuploidy [facility] 03/04/2024 Nutrition counseling ; special diet; dietary precautions (mercury, listeriosis) [facility]03/04/2024 Childbirth classes/hospital facilities [facility]03/04/2024 HIV and other routine tests [facility]03/04/2024 Risk factors identif ied by history [facility]03/04/2024 Weight gain counseling 25-35 lbs [facility]03/04/2024 Exercise [facility]03/04/2024 Teratogens [facility]03/04/2024 Use of any medicatio ns (including supplements, vitamins, herbs, or OTC drugs) PNV [facility]03/04/2024 Sexual activity [facility]03/04/2024 Tobacco/smoking cess ation counseling (ask, advise, assess, assist, and arrange) [facility]03/04/2024 Illicit/recreational drugs f arr 03/04/2024 Dental care [facility]03/04/2024 Travel 03/04/2024 Seat belt use [facility]03/04/2024 Indications for ultrasonography [facility]03/04/2024 Avoidance of saunas or hot tubs [facility]03/04/2024 Toxoplasmosis precautions (cats/raw meat) [facility] Second Trimester Discussed Date Discussion Item Discussion Note Discuss ed By Third Trimester Discussed Date Discussion Item Discussion Note Discuss ed By Delivery Information Delivery Date Delivery Type Labor Anesthesia Weeks Gestation Incision Type Labor Labor Length Hrs Delivered By Post Complications Tubal Sterilization Discharge Date Comments Discharge Information Feeding Method Contraceptive Method Maternal HG B and HCT Levels
--- OUTSIDE RECORDS SUMMARY | 2024-09-22 20:06 | XMS_ITS | Clinical Summary ---
Author Organization [facility] Address [address] [place] [address] Care Team Providers Care Copy Clerk Name Role Phone Esther Martin MD Primary Care Provider + Allergies No known active allergies Medications PNV,calcium 72-iron,carb-fol ic ( PLUS WITH IRON) 29 mg iron- 1 mg tablet Take by mouth daily Active aspirin 81 mg enteric coated tablet Take 1 tablet (81 mg total) by mouth daily Active Active Problems No known active problems Encounters Date Type Department Care Team Description 08/17/2024 3:30 PM SACK CLEANER Office Visit [facility] Medical [facility] Cardiology [address] [place] [address] [place] [phone] Abad Martinez MD Dyspnea, unspecified type (Primary Dx) from Last 3 Months Social History Tobacco Use Types Packs/Day Years Used Date Smoking Tobacco: Never Comments Unknown Sex and Gender Information Value Date Recorded Sex Assigned at Not on file Legal Sex Female 10:55 AM CDT Gender Identity Not on file Sexual Orientation Not on file Obstetrics History Last Filed Vital Signs Vital Sign Reading Time Taken Comments Blood Pressure 100/60 08/17/2024 3:38 PM SACK CLEANER Pulse 88 08/17/2024 3:38 PM SACK CLEANER Temperature - - Respiratory Rate - - Oxygen Saturation 96% 05/12/2024 12:33 PM CDT Inhaled Oxygen Concentration - - Weight 82.8 kg (182 lb 9.6 oz) 08/17/2024 3:38 P M SACK CLEANER Height 175.3 cm (5' 9.02 ) 08/17/2024 3:38 PM CS T Body Mass Index 26.95 08/17/2024 3:38 PM SACK CLEANER Plan of Treatment Health Maintenance Due Date Last Done Comments Cervical Cancer Screening 1996 Depression Screening 1996 Hepatitis C Screening 1996 DTaP/Tdap/Td Vaccine (1 - Tdap) 10/12/2007 Varicella Vaccines (1 of 2 - 13+ 2-dose series) 2009 Hepatitis B Screening 2014 Regular Well Visit/Exam 18-64 2014 Influenza Vaccine (#1) 2024 HPV Vaccines Aged Out No longer eligi ble based on patient's age to complete this topic Pneumococcal vaccine <65 Aged Out No longer eligible based on patient's age to complete this topic Insurance [facility] Care Teams Copy Clerk Relationship Specialty Start Date End Date Esther Martin MD [address] [place] [address] PCP - General Gynecology 04/14/24
--- OUTSIDE RECORDS SUMMARY | 2024-09-22 20:06 | XMS_ITS | Referral Summary ---
Author Organization [facility] Address [address] [place] [address] Care Team Providers Care Back Order Clerk Name Role Phone Esther Martin MD Primary Care Provider + Encounters Date Type Department Care Team Description 08/17/2024 3:30 PM SOLAR ENERGY SALES SPECIALIST Office Visit [facility] Medical [facility] Cardiology [address] [facility] [address] [place] [phone] Abad Martinez MD Dyspnea, unspecified type (Primary Dx) from Last 3 Months Allergies No known active allergies Medications PNV,calcium 72-iron,carb-fol ic ( PLUS WITH IRON) 29 mg iron- 1 mg tablet Take by mouth daily Active aspirin 81 mg enteric coated tablet Take 1 tablet (81 mg total) by mouth daily Active Active Problems No known active problems Social History Tobacco Use Types Packs/Day Years Used Date Smoking Tobacco: Never Comments Unknown Sex and Gender Information Value Date Recorded Sex Assigned at Not on file Legal Sex Female 10:55 AM CDT Gender Identity Not on file Sexual Orientation Not on file Last Filed Vital Signs Vital Sign Reading Time Taken Comments Blood Pressure 100/60 08/17/2024 3:38 PM SOLAR ENERGY SALES SPECIALIST Pulse 88 08/17/2024 3:38 PM SOLAR ENERGY SALES SPECIALIST Temperature - - Respiratory Rate - - Oxygen Saturation 96% 05/12/2024 12:33 PM CDT Inhaled Oxygen Concentration - - Weight 82.8 kg (182 lb 9.6 oz) 08/17/2024 3:38 P M SOLAR ENERGY SALES SPECIALIST Height 175.3 cm (5' 9.02 ) 08/17/2024 3:38 PM CS T Body Mass Index 26.95 08/17/2024 3:38 PM SOLAR ENERGY SALES SPECIALIST Plan of Treatment Not on file Insurance [facility] Care Teams Back Order Clerk Relationship Specialty Start Date End Date Esther Martin MD [address] [facility] [place] [address] [place] [address] PCP - General Gynecology 04/14/24
[2024-09-22 20:17] LABS: Basophils Percent Auto 0.3 % (0.2-1.2); Eosinophils Absolute Auto 0.1 K/mm3 (0-0.3); Eosinophils Percent Auto 1.1 % (0-4.4); Hematocrit 38.4 % (37.0-47.0); Hemoglobin 13.6 g/dL (12.0-15.0); Immature Granulocyte Absolute 0.15 K/mm3 (0.00-0.031); Immature Granulocyte Percent A 1.1 % (0-0.5); Lymphocytes Absolute Auto 2.62 K/mm3 (0.9-3.2); Lymphocytes Percent Auto 19.8 % (18.3-44.2); Mean Corpuscular HGB Conc 35.4 g/dl (32-36); Mean Corpuscular Hemoglobin 32.3 pg (26-34); Mean Corpuscular Volume 91.2 fl (80-100); Mean Platelet Volume 11.5 fl (7.4-10.4); Monocytes Percent Auto 7.3 % (2.6-8.5); Neutrophils Absolute Auto 9.3 K/mm3 (1.3-6.7); Neutrophils Percent Auto 70.4 % (45.5-73.1); Platelet Count Result 173 k/mm3 (150-375); Red Blood Count 4.21 M/mm3 (4.2-5.4); Red Cell Distribution Width 12.7 % (11.5-14.5); White Blood Count 13.2 K/mm3 (4.5-10.0)
[2024-09-22 20:36] LABS: Rapid Plasma Reagin Non-Reactive (NonReactive)
[2024-09-22] MEDS: LACTATED RINGERS 1,000 ML 125 ML IV CONT ×2 (20:38→22:53)
[2024-09-22] MEDS: OXYTOCIN 30 UNITS/NS 500 ML 30 UNITS/500 ML BAG 6 UNITS IV CONT (20:46)
[2024-09-22 21:06] LABS: HIV 1/2 Ab P24 Ag Result Negative (Negative)
--- NOTE | 2024-09-22 22:31 | P.PNAN_ITS ---
Anes - Eval Pre Procedure Procedure: labor epidural Date/Time: 09/22/24 22:31 Surgeon: chary Preop Diagnosis: pain during labor Pre Op Diagnosis: leaking Patient Data Age: 28 Gender: F Height: 1.75 m Weight: 83.63 kg Last Vital Signs Temp 36.5 C 09/22/24 20:46 Pulse 84 09/22/24 22:30 BP 130/75 09/22/24 22:30 Pulse Ox 97 09/22/24 22:30 O2 Del Method Room Air 09/22/24 20:45 Allergies Allergy/AdvReac Type Severity Reaction Status Date / Time No Known Allergies Allergy Verified 09/02/24 14:48 Home Medications ?Medication ?Instructions ?Recorded ?Confirmed ?Type vit no.95-ferrous 1 tablet PO DAILY 09/02/24 09/02/24 History fumarate 28 mg-folic acid 800 mcg tablet () Laboratory Tests 09/22/24 20:12 WBC 13.2 H K/mm3 (4.5-10.0) RBC 4.21 M/mm3 (4.2-5.4) Hgb 13.6 g/dL (12.0-15.0) Hct 38.4 % (37.0-47.0) MCV 91.2 fl (80-100) MCH 32.3 pg (26-34) MCHC 35.4 g/dl (32-36) RDW 12.7 % (11.5-14.5) Plt Count 173 k/mm3 (150-375) MPV 11.5 H fl (7.4-10.4) Immature Gran % (Auto) 1.1 H % (0-0.5) Neut % (Auto) 70.4 % (45.5-73.1) Lymph % (Auto) 19.8 % (18.3-44.2) [place] % (Auto) 7.3 % (2.6-8.5) Eos % (Auto) 1.1 % (0-4.4) Baso % (Auto) 0.3 % (0.2-1.2) Lymph # (Auto) 2.62 K/mm3 (0.9-3.2) [place] # (Auto) 1.0 H K/mm3 (0.1-0.6) Eos # (Auto) 0.1 K/mm3 (0-0.3) Baso # (Auto) 0.0 K/mm3 (0.0-0.1) Abs Immat Gran (auto) 0.15 H K/mm3 (0.00-0.031) Absolute Neuts (auto) 9.3 H K/mm3 (1.3-6.7) Absolute Nucleated RBC 0.000 K/mm3 (0.0-0.012) Nucleated RBC % 0.0 % (0.0-0.2) RPR Non-reactive (NonReactive) HIV 1&2 Ab/P24 Ag 4thGn Negative (Negative) Blood Type O Positive Antibody Screen Negative Patient hx anesthesia problems: none Family hx anesthesia problems: none Results Review: All pre-operative results and documents have been reviewed as part of the pre- operative evaluation. [facility] Past Medical History Medical History (Updated 09/22/24 @ 22:32 by Emani Anders CRNA) IUP (intrauterine ), incidental Family History Family History (Updated 09/02/24 @ 14:33 by Silvia Sutton RN) Grandparent Breast cancer Mother Diabetes mellitus Social History Social History Smoking status: Never smoker Substance use: never Do You Feel Safe in your Home?: Yes Lack of Transportation: No Lack of Food: Never True Current Housing: I Have Housing Concerned About Future Housing: No Difficulty Paying Gas/Electric Bills: No Difficulty Paying for Meds: No Currently Unemployed: No Education: Master's Degree or Higher Difficulty w/ Childcare or Family Care: No Spiritual care concerns: No Exam Day of Procedure 09/22/24 22:31
[2024-09-23] VITALS (101 sets, daily range): BP systolic 88–141; BP diastolic 49–98; PULSE 50–259; RESP 12–17; TEMP 35.7–37.1; O2SAT 81–100
[2024-09-23] MEDS: ONDANSETRON INJ 4 MG/2 ML VIAL IV PUSH (01:59)
[2024-09-23] MEDS: PHENYLEPHRINE 1,000 MCG/10 ML SYRINGE 100 MCG IV PUSH ×2 (01:59→02:13)
[2024-09-23] MEDS: LACTATED RINGERS 1,000 ML 125 ML IV CONT (02:28)
--- NOTE | 2024-09-23 03:05 | PM.IMHP ---
H&P: HPI History of Present Illness Date/Time: 09/23/24 03:05 Chief Complaint: Rene otero Narrative: 28 y/o G1 at 39 2/7 weeks who had a gush of clear fluid at 1900. SROM confirmed with [facility]. GBS neg. Now comfortable with epidural. Labor augmented with oxytocin. Oxytocin was stopped for fhr abnormalities, but fhr has normalized. No decelerations. Contractions every 3-5 min. Review of Systems Review of Systems: All systems reviewed & are unremarkable except as noted in HPI and below [facility] Past Medical History Medical History (Updated 09/23/24 @ 03:09 by Guanako Alcazar MD) IUP (intrauterine ), incidental Surgical History Surgical History History of appendectomy Family History Family History Grandparent Breast cancer Mother Diabetes mellitus Social History Social History Smoking status: Never smoker Substance use: never Do You Feel Safe in your Home?: Yes Lack of Transportation: No Lack of Food: Never True Current Housing: I Have Housing Concerned About Future Housing: No Difficulty Paying Gas/Electric Bills: No Difficulty Paying for Meds: No Currently Unemployed: No Education: Master's Degree or Higher Difficulty w/ Childcare or Family Care: No Spiritual care concerns: No Meds Home Medications and Allergies Home Medications ?Medication ?Instructions ?Recorded ?Confirmed ?Type vit no.95-ferrous 1 tablet PO DAILY 09/02/24 09/02/24 History fumarate 28 mg-folic acid 800 mcg tablet () Allergies Allergy/AdvReac Type Severity Reaction Status Date / Time No Known Allergies Allergy Verified 09/23/24 00:05 Vital Signs Vital Signs - 24 hr 09/22/24 20:08 09/22/24 20:15 09/22/24 20:30 Temperature Pulse Rate 99 85 95 Blood Pressure 130/71 142/86 H 133/80 Pulse Oximetry Oxygen Delivery 09/22/24 20:45 09/22/24 20:46 09/22/24 21:00 Temperature 36.5 C Pulse Rate 104 H Blood Pressure 124/74 Pulse Oximetry Oxygen Delivery Room Air 09/22/24 21:15 09/22/24 21:18 09/22/24 21:23 Temperature Pulse Rate 67 Blood Pressure 83/55 L Pulse Oximetry 98 99 Oxygen Delivery 09/22/24 21:28 09/22/24 21:31 09/22/24 21:33 Temperature Pulse Rate 102 H Blood Pressure 138/73 Pulse Oximetry 99 98 Oxygen Delivery 09/22/24 21:39 09/22/24 21:44 09/22/24 21:45 Temperature Pulse Rate 106 H Blood Pressure 115/73 Pulse Oximetry 99 98 98 Oxygen Delivery 09/22/24 21:45 09/22/24 21:50 09/22/24 21:55 Temperature Pulse Rate Blood Pressure Pulse Oximetry 96 99 98 Oxygen Delivery 09/22/24 22:00 09/22/24 22:05 09/22/24 22:10 Temperature Pulse Rate 96 Blood Pressure 135/91 H Pulse Oximetry 96 99 98 Oxygen Delivery 09/22/24 22:15 09/22/24 22:20 09/22/24 22:25 Temperature Pulse Rate 85 Blood Pressure 125/85 Pulse Oximetry 98 99 98 Oxygen Delivery 09/22/24 22:30 09/22/24 22:35 09/22/24 22:40 Temperature Pulse Rate 84 87 Blood Pressure 130/75 128/66 Pulse Oximetry 97 99 99 Oxygen Delivery 09/22/24 22:41 09/22/24 22:42 09/22/24 22:45 Temperature Pulse Rate 80 87 88 Blood Pressure 121/82 120/80 110/70 Pulse Oximetry 99 Oxygen Delivery 09/22/24 22:47 09/22/24 22:50 09/22/24 22:52 Temperature Pulse Rate 84 90 Blood Pressure 123/73 123/72 Pulse Oximetry 100 Oxygen Delivery 09/22/24 22:53 09/22/24 22:55 09/22/24 22:57 Temperature Pulse Rate 95 90 97 Blood Pressure 126/76 126/73 137/119 H Pulse Oximetry 100 Oxygen Delivery 09/22/24 23:00 09/22/24 23:03 09/22/24 23:08 Temperature Pulse Rate 83 Blood Pressure 122/63 Pulse Oximetry 100 99 100 Oxygen Delivery 09/22/24 23:13 09/22/24 23:18 09/22/24 23:23 Temperature Pulse Rate Blood Pressure Pulse Oximetry 100 100 100 Oxygen Delivery 09/22/24 23:28 09/22/24 23:32 09/22/24 23:33 Temperature Pulse Rate 66 Blood Pressure 115/70 Pulse Oximetry 100 100 Oxygen Delivery 09/22/24 23:38 09/22/24 23:43 09/22/24 23:46 Temperature Pulse Rate 88 Blood Pressure 171/147 H Pulse Oximetry 100 98 100 Oxygen Delivery 09/22/24 23:51 09/22/24 23:56 09/23/24 00:00 Temperature Pulse Rate 97 Blood Pressure Pulse Oximetry 100 100 Oxygen Delivery 09/23/24 00:01 09/23/24 00:06 09/23/24 00:11 Temperature Pulse Rate Blood Pressure Pulse Oximetry 100 100 100 Oxygen Delivery 09/23/24 00:15 09/23/24 00:16 09/23/24 00:20 Temperature Pulse Rate 83 Blood Pressure 130/72 Pulse Oximetry 100 100 Oxygen Delivery 09/23/24 00:24 09/23/24 00:29 09/23/24 00:31 Temperature Pulse Rate 81 Blood Pressure 109/63 Pulse Oximetry 99 100 Oxygen Delivery 09/23/24 00:34 09/23/24 00:39 09/23/24 00:44 Temperature Pulse Rate Blood Pressure Pulse Oximetry 100 100 100 Oxygen Delivery 09/23/24 00:44 09/23/24 00:45 09/23/24 00:45 Temperature Pulse Rate Blood Pressure Pulse Oximetry 99 99 99 Oxygen Delivery 09/23/24 00:45 09/23/24 00:45 09/23/24 00:50 Temperature Pulse Rate 81 Blood Pressure 106/49 L Pulse Oximetry 100 Oxygen Delivery 09/23/24 00:55 09/23/24 01:00 09/23/24 01:05 Temperature Pulse Rate 115 H Blood Pressure 115/89 Pulse Oximetry 100 100 100 Oxygen Delivery 09/23/24 01:10 09/23/24 01:15 09/23/24 01:20 Temperature Pulse Rate 93 Blood Pressure 126/73 Pulse Oximetry 100 99 100 Oxygen Delivery 09/23/24 01:25 09/23/24 01:30 09/23/24 01:35 Temperature Pulse Rate 81 Blood Pressure 107/72 Pulse Oximetry 100 100 100 Oxygen Delivery 09/23/24 01:40 09/23/24 01:45 09/23/24 01:50 Temperature Pulse Rate 85 Blood Pressure 88/71 L Pulse Oximetry 100 99 100 Oxygen Delivery 09/23/24 01:55 09/23/24 01:57 09/23/24 02:00 Temperature Pulse Rate 59 L 60 Blood Pressure 101/55 L 109/59 L Pulse Oximetry 99 98 Oxygen Delivery 09/23/24 02:05 09/23/24 02:10 09/23/24 02:13 Temperature Pulse Rate 75 Blood Pressure 108/78 Pulse Oximetry 98 99 Oxygen Delivery 09/23/24 02:15 09/23/24 02:20 09/23/24 02:25 Temperature Pulse Rate 259 H Blood Pressure 108/83 Pulse Oximetry 99 100 100 Oxygen Delivery 09/23/24 02:30 09/23/24 02:35 09/23/24 02:40 Temperature Pulse Rate 239 H Blood Pressure 116/70 Pulse Oximetry 100 100 100 Oxygen Delivery 09/23/24 02:45 09/23/24 02:50 09/23/24 02:55 Temperature Pulse Rate 251 H Blood Pressure 107/82 Pulse Oximetry 100 100 100 Oxygen Delivery 09/23/24 03:00 09/23/24 03:01 Temperature Pulse Rate 78 Blood Pressure 120/63 Pulse Oximetry 100 97 Oxygen Delivery Exam Const: Orientation/consciousness: patient oriented x3 Other: Well-developed, well-nourished female in no acute distress. Neck: Thyroid: thyroid normal Lymphatic: no lymphadenopathy noted (in neck, axilla or inguinal nodes) Resp: Effort & Inspection: normal respiratory effort Auscultation: clear to auscultation bilaterally Cardio: Rate: regular rate Rhythm: regular rhythm Heart sounds: S1 normal heart sound present and S2 normal heart sound present GI: Other: ABD: Soft, nontender, nondistended, gravid. No guarding or rebound tenderness. No hepatosplenomegaly. NST reactive. TOCO: contractions every 3-4 min. : General: Yes no CVA tenderness Other: Cervix 9/100/0 Back/Spine/Pelvis: Back: no CVA tenderness Skin: General skin exam: normal color and no rashes or lesions noted Neuro: General: patient oriented x3 Extrem: Other: Extremities: nontender with no edema Psych: Mental Status: mental status grossly normal Affect: normal affect H&P: Results Labs Labs: Short CBC 02/13/25 Range/Units 20:12 WBC 13.2 H (4.5-10.0) K/mm3 Hgb 13.6 (12.0-15.0) g/dL Hct 38.4 (37.0-47.0) % Plt Count 173 (150-375) k/mm3 Assessment and Plan Assessment and plan (1) Term : Code(s): Z34.90 - Encounter for supervision of normal , unspecified, unspecified trimester Status: Acute Assessment and Plan: A: IUP at term with SROM. P: Resume oxytocin. Anticipate . (2) SROM (spontaneous rupture of membranes): Status: Acute
--- NOTE | 2024-09-23 05:08 | PM.OBPRVD ---
OB - Vaginal Delivery Note Procedure Delivery date: 09/23/24 Induction method: None Delivery augmentation: Pitocin Delivery monitor: External FHT, External Uterine and Internal Uterine Route of delivery: Episiotomy description: None Laceration Description: Vaginal and Labial Delivery repair: vicryl (3-0) Specimen: Yes (cord blood) Quantitative Blood Loss (ml): 320 Anesthesia type: Epidural Disposition: PACU Complications: None Narrative: 28 y/o G1 at 39 2/7 weeks gestation who presented to the hospital after a gush of clear fluid. SROM was confirmed. Labor was subsequently augmented with oxytocin. She received an epidural for pain control. Her labor progressed and her cervix dilated completely. She pushed with good effort and delivered the 's head to the perineum, followed by the body. The nose and mouth were bulb suctioned. After a delay, the cord was clamped and cut. The was handed off the field. Cord blood was collected. The placenta delivered spontaneously and was grossly normal in appearance. The usual 3 vessel cord was noted. A laceration involving the anterior labia adjacent to the clitoris was reapproximated using 3 0 Vicryl in interrupted figure of eight fashion. A distal vaginal laceration required a single figure of eight suture of the same material. Excellent hemostasis resulted as did excellent reapproximation of the normal anatomy. Needle and instrument counts were correct. The patient was taken to recovery room in stable condition. The went to the nursery in stable condition. I was present and scrubbed for the entire delivery. Baby Date of : 09/23/24 Time of : 04:50 Gestational Age by Date: 39 Infant gender: Female presentation: vertex position: Left Occiput Anterior Placenta delivery description: Spontaneous and Normal Configuration Cord Vessel Description: 3 Vessels and Delayed Cord Clamping score one minute: 9 score five minutes: 9
--- NOTE | 2024-09-23 05:11 | PM.OBDSVD ---
DS: Admitting Diagnosis Discharge Date 09/24/24 <Esther Martin MD - Last Filed: 09/24/24 11:23> Admitting Diagnosis IUP at 39 2/7 weeks SROM <Guanako Alcazar MD - Last Filed: 09/23/24 05:12> DS: Discharge Diagnosis Discharge Diagnosis (1) (normal spontaneous vaginal delivery): Code(s): O80 - Encounter for full-term uncomplicated delivery <Guanako Alcazar MD - Last Filed: 09/23/24 05:12> Status: Acute <Guanako Alcazar MD - Last Filed: 09/23/24 05:12> OB - DS: Summary OB Procedures : None <Guanako Alcazar MD - Last Filed: 09/23/24 05:12> OB Procedures Intrapartum: Spontaneous Vag Delivery <Guanako Alcazar MD - Last Filed: 09/23/24 05:12> OB Procedures: : None <Guanako Alcazar MD - Last Filed: 09/23/24 05:12> Peripartum Data Laceration Description: Vaginal and Labial <Guanako Alcazar MD - Last Filed: 09/23/24 05:12> Episiotomy description: None <Guanako Alcazar MD - Last Filed: 09/23/24 05:12> Time Spent with Patient Time attestation: Total time spent providing and/or coordinating discharge services: <Guanako Alcazar MD - Last Filed: 09/23/24 05:12> DS: Data Data Completed and Pending Labs on day of discharge: Labs from last 24 hours 09/22/24 20:12 WBC 13.2 H RBC 4.21 Hgb 13.6 Hct 38.4 MCV 91.2 MCH 32.3 MCHC 35.4 RDW 12.7 Plt Count 173 MPV 11.5 H Immature Gran % (Auto) 1.1 H Neut % (Auto) 70.4 Lymph % (Auto) 19.8 [place] % (Auto) 7.3 Eos % (Auto) 1.1 Baso % (Auto) 0.3 Lymph # (Auto) 2.62 [place] # (Auto) 1.0 H Eos # (Auto) 0.1 Baso # (Auto) 0.0 Abs Immat Gran (auto) 0.15 H Absolute Neuts (auto) 9.3 H Absolute Nucleated RBC 0.000 Nucleated RBC % 0.0 RPR Non-reactive HIV 1&2 Ab/P24 Ag 4thGn Negative Blood Type O Positive Antibody Screen Negative <Guanako Alcazar MD - Last Filed: 09/23/24 05:12> Discharge Plan Discharge Attending physician on discharge: Guanako Alcazar <Guanako Alcazar MD - Last Filed: 09/23/24 05:12> Guanako Alcazar <Esther Martin MD - Last Filed: 09/24/24 11:23> Discharging Clinician: Esther Martin <Guanako Alcazar MD - Last Filed: 09/23/24 05:12> Esther Martin <Esther Martin MD - Last Filed: 09/24/24 11:23> Patient Disposition: Home, Self-Care <Guanako Alcazar MD - Last Filed: 09/23/24 05:12> Activity: pelvic rest <Guanako Alcazar MD - Last Filed: 09/23/24 05:12> pelvic rest <Esther Martin MD - Last Filed: 09/24/24 11:23> Diet: regular <Guanako Alcazar MD - Last Filed: 09/23/24 05:12> regular <Esther Martin MD - Last Filed: 09/24/24 11:23> Discharge Instructions: Call or return if temperature above 100.4? F, increased abdominal pain, increased vaginal bleeding or any new problems. <Guanako Alcazar MD - Last Filed: 09/23/24 05:12> Patient Language: Guyanese <Guanako lAcazar MD - Last Filed: 09/23/24 05:12> Stand Alone Forms: General Discharge Information <Guanako Alcazar MD - Last Filed: 09/23/24 05:12> Follow-up/Referrals: Guanako Alcazar MD [Physician] - 6 Weeks <Guanako Alcazar MD - Last Filed: 09/23/24 05:12> Discharge Medications: New ibuprofen 600 mg tablet 600 mg PO Q6H PRN (Reason: cramps) Qty: 30 0RF Continued PNV cmb#95-ferrous fumarate-FA [] 28 mg iron- 800 mcg tablet 1 tablet PO DAILY <Guanako Alaczar MD - Last Filed: 09/23/24 05:12> Date of admission: 09/22/24 19:40 <Guanako Alcazar MD - Last Filed: 09/23/24 05:12> Primary Care Provider: UNKNOWN,DOCTOR <Guanako Alcazar MD - Last Filed: 09/23/24 05:12> Admitting Provider: Guanako Alcazar <Guanako Alcazar MD - Last Filed: 09/23/24 05:12> Attending physician on admission: Guanako Alcazar <Guanako Alcazar MD - Last Filed: 09/23/24 05:12> Condition: Stable <Guanako Alcazar MD - Last Filed: 09/23/24 05:12>
[2024-09-23] MEDS: OXYTOCIN 30 UNITS/NS 500 ML 30 UNITS/500 ML BAG 125 UNITS IV CONT (05:27)
[2024-09-23] MEDS: IBUPROFEN 600 MG TABLET PO ×3 (07:51→21:24)
[2024-09-23] MEDS: BENZOCAINE 20% AER SPR (*SP) 56 GM CAN 1 SPRAY TOPICAL (08:07)
[2024-09-23] MEDS: WITCH HAZEL 40 PADS 1 PAD TOPICAL (08:07)
--- NOTE | 2024-09-23 08:35 | PC.NURSE ---
Patient transferred to post room # 288 via wheelchair. Support person present. Oriented to unit, room, information board, rooming in, admission packet and security measures. Patient verbalizes understanding.
--- NOTE | 2024-09-23 09:10 | PC.NURSE ---
Introductions were made, then consulted with patient to assess needs related to . Mother led the conversation with her?plans to feed?her and the?experience so far. Encouraged understanding of the benefits of skin to skin (demonstrating unwrapping infant and placing upright on her chest), stimulating with massage touch, changing positions to encourage wakefulness, how to watch for early feeding cues, responsive feeding, feeding on demand (aiming for 8-12 times in 24 hours, about every 2-3 hours), milk production, building/maintaining a milk supply, duration of feeding, signs of adequate intake/output and how to record on the feeding sheet. Mother works well with her infant with encouragement and education. Reviewed positioning and ear, shoulder, hip alignment, supporting the breast to facilitate a deep latch, asymmetrical latch (off-center), leading with the chin with a big, open, wide gape and body close to mother. Infant latched optimally to the [left] breast in [cross cradle] position. Education given to the mother of how to visualize the suckling (with good rocking jaw motion), swallows (dropping of the lower jaw) and how to listen for drinking at the breast (the ka sound). Infant was [able] to maintain latch without pain to mother protecting the nipple with optimal positioning and latching. Reviewed comfort measures of healing with a warm, wet washcloth to rinse breast, then leave open to air-dry, good handwashing when or touching the breast/nipples to prevent infection. Mother voiced understanding of skin to skin, stimulating with massage touch, responsive feedings, hand expressed colostrum, talking to infant to encourage if it has been 2 -2.5 hours since the start of the last , to call if does not latch, or if there is discomfort with . Resources used for education were facilitated with the [visual educational handouts/ tool/mom and baby guide], Inpatient/outpatient resources provided with business card, feeding sheet, name written on the communication board, and the mom/baby guide. Parents voiced understanding of information, demonstrated learning and will call if there is a request for assistance. Reported to the Primary RN.
--- NOTE | 2024-09-23 14:18 | PC.NURSE ---
Charting completed by student nurse Brisa Kim, has been reviewed and acknowledged by this RN.
--- NOTE | 2024-09-23 15:30 | PC.NURSE ---
Patient called out for assistance. She says that the latch is feeling painful and pinchy. From the outside, the latch appears optimal. Baby has her lips flanged out, her tongue can be seen cupping the underside of the breast, and baby has her chin on the breast. We broke the latch and tried switching to football position. Mom state the latch feels the same in this position. Infants mouth was assessed and she has good buccal muscles, her tongue extends past her bottom lip, and her lips appear to flange easily without any restriction. Encouraged mom to make sure baby stays deep throughout the feeding and to break the latch and start over if she is shallow. We discussed that baby may be clenching her jaw while she is still learning how to latch and suckle. Mom's nipple does appear smashed after breaking the latch. Mom was shown how to see the difference between nutritive and nonnutritive sucking. Mom will call for further assistance as needed. Reported to primary RN.
[2024-09-23] MEDS: DOCUSATE SODIUM 100 MG CAPSULE PO (21:24)
[2024-09-24] MEDS: IBUPROFEN 600 MG TABLET PO ×2 (04:38→09:50)
[2024-09-24 04:47] VITALS: BP 111/76; PULSE 82; RESP 16; TEMP 37.1; O2SAT 99
[2024-09-24 05:21] LABS: Hematocrit 33.2 % (37.0-47.0); Hemoglobin 11.3 g/dL (12.0-15.0)
[2024-09-24 08:10] VITALS: BP 99/59; PULSE 87; RESP 18; TEMP 36.9; O2SAT 99
--- NOTE | 2024-09-24 08:20 | PC.NURSE ---
Consulted with mother concerning needs and she shared her ability to independently latch infant optimally, mother complains of pain with baby initially latching on but then subsides as baby latches deeper. Mother is feeding appropriately for growth of infant and understands stimulating infant to eat if needed. Mother does have her own Spectra Breast pump with her and she would like her nipples measured to make sure she is using the right size flange at home if needed, both nipples measured at 20mm, she will use the size 24 flange. Infant has had appropriate feedings in the last 24 hours meets the outcomes for weight, output, blood sugar and jaundice at this time. Reinforced understanding of milk production, transition of milk, signs of adequate intake, transition of stool, prevention/relief of engorgement, plugged ducts, mastitis, responsive watching for feeding cues, the different methods of stimulating to breastfeed 1-3 hours after the start of the last feeding, community resources, and when to call a provider using the resource of the feeding sheet along with the mom and baby guide. Mother voiced understanding of the information shared, is confident to continue effectively her at home, when to call for assistance, denies any additional assistance or education at this time. Reported to the Primary RN.
[2024-09-24] MEDS: MULTIVIT/MIN/PREN/FOL AC/IRON TABLET 1 TAB PO (09:49)
[2024-09-24] MEDS: WITCH HAZEL 40 PADS 1 PAD TOPICAL (09:51)
--- NOTE | 2024-09-24 11:10 | P.PNOB_ITS ---
OB - PN: Subj Subjective Date/time seen: 09/24/24 11:10 Patient comments: no complaints and pain well controlled baby status: doing well OB - PN: Obj Data Labs 09/24/24 04:45 Labs: Laboratory Results - last 24 hr 09/24/24 04:45 Hgb 11.3 L Hct 33.2 L OB - PN A/P Plan day: 1 Plan: routine care and discharge home Time Spent With Patient Time: Total time spent is greater than 50% in coordination of care (as documented) at patient's floor/unit and/or counseling patient: Exam 2 : Bimanual exam- vagina & uterus: other (Uterus firm, nt @U)
[2024-09-26 10:15] VITALS: BP 128/84; PULSE 107; RESP 18; TEMP 36.9; O2SAT 100
== END 2024-09-24 14:45 | disposition home or self-care (01) | DRG 807 ==
LOC: ANHOB2 09-26 12:14 → ANHLDR 09-26 12:14
PROVIDERS: Admitting Provider Obstetrics & Gynecology; Visit Provider Obstetrics & Gynecology Gynecology
DX: O71.4 Obstetric high vaginal laceration alone (principal); Z37.0 Single live birth; Z3A.39 39 weeks gestation of pregnancy
CPT/HCPCS: 36415; 85014; 85018; 85025; 86592; 86703; 86850; 86900; 86901; A9270; G0432; J2371; J2405; J2590; J2795; J7120

== ENCOUNTER 2024-10-22 13:47 | Emergency (ER) | payer BC, SELFPAY ==
--- OUTSIDE RECORDS SUMMARY | 2024-10-22 13:49 | XMS_ITS | Referral Summary ---
Author Organization [facility] Address [address] [place] [address] Care Team Providers Care Educational Technology Coordinator Name Role Phone Esther Martin MD Primary Care Provider + Encounters Date Type Department Care Team Description 08/17/2024 3:30 PM AN EM[employer]OYEE [employer] AND Office Visit [facility] Cardiology [address] [facility] [address] [place] [phone] Abad Martinez MD Dyspnea, unspecified type [...] Comments Blood Pressure 100/60 08/17/2024 3:38 PM AN EMPLOYEE [employer]ONSOR OR [employer] AND Pulse 88 08/17/2024 3:38 PM AN EMPLOYEE SPONSOR OR ADVOCATE AND Temperature - - Respiratory Rate - - Oxygen Saturation 96% 05/12/2024 12:33 PM CDT Inhaled Oxygen Concentration - - Weight 82.8 kg (182 lb 9.6 oz) 08/17/2024 3:38 P M AN EMPLOYEE [employer]ONSOR OR [employer]VOC[employer] AND Height 175.3 cm (5' 9.02 ) 08/17/2024 3:38 PM CS T Body Mass Index 26.95 08/17/2024 3:38 PM AN EMPLOYEE SPONSOR OR ADVOCATE AND Plan of Treatment Not on file Insurance [facility] Care Teams Educational Technology Coordinator Relationship Specialty Start Date End Date Esther Martin MD [address] [facility] [address] [place] [address] PCP - General Gynecology 04/14/24
--- OUTSIDE RECORDS SUMMARY | 2024-10-22 13:49 | XMS_ITS | Data Portability ---
Author Organization [place] [facility], [id number]IP Address [address] [place] [address] Assessment No assessment recorded. Plan of Treatment Reminders Order Date Submit Date Provider Last Modified By Organization Details Last Modified Time Details Appointments None recorded. 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 Procedures None recorded. Surgeries None recorded. Imaging None recorded. Medication Orders None recorded. Patient TargetsNo targets recorded. Patient Instructions Encounter Date Encounter Id Patient Instructions Last Modified By Organization Details Last Modified Time 03/25/2024 [id number] Pap smear and genital cultures performed, follow-up per results. New OB physical exam within normal limits. Dates appropriate for gestational age. Discussed routine OB precautions, education and questions answered. I had a beveler present during all portions of the physical exam for this visit. Her name was Lisa. carreno Not available 03/25/2024 14:22:13 Reason for Referral None Reported. Results Created Date Observation Date Name Description Value Unit Range Abnormal Flag Note LastModifiedBy Organization Detail LastModifiedTime 03/04/2003/05/2024 PREGN AICHA, INITI AL SCREE N HBsAg screen Negati ve negati ve Not Available [facility] ([facility]) [address], [place], [address], 03/08/2024 10:16:26 03/04/2003/05/2024 PREGN AICHA, INITI AL SCREE N HCV Ab Non Reacti ve non reacti ve Not Available [facility] ([facility]) [address], [place], [address], 03/08/2024 10:16:26 03/04/20 24 03/05/2024 PREGN AICHA, INITI AL SCREE N interpretati on: Commen t Not infec kanika with HCV unles s early or acute infec tion is suspe cted (whic h may be delay ed in an immun ocomp romis ed indiv idual ), or other evide nce exist s to indic ate HCV infec tion. Not Available [facility] ([facility]) [address], [place], [address], 03/08/2024 10:16:26 03/04/20 24 03/05/2024 PREGN AICHA, INITI AL SCREE N RPR Non Reacti ve non reacti ve Not Available [facility] ([facility]) [address], [place], [address], 03/08/2024 10:16:26 03/04/20 24 03/05/2024 PREGN AICHA, INITI AL SCREE N rubella antibodies, IgG 20.60 index immune >0.99 Non-i mmune <0.90 Equiv ocal 0.90 - 0.99 Immun e >0.99 Not Available [facility] ([facility]) [address], [place], [address], 03/08/2024 10:16:26 03/04/20 24 03/05/2024 PREGN AICHA, INITI AL SCREE N ABO grouping O Not Available [facility] ([facility]) [address] [place], [address], 03/08/2024 10:16:26 03/04/20 24 03/05/2024 PREGN AICHA, INITI AL SCREE N Rh factor Positi ve Pleas e note: Prior recor ds for this patie nt's ABO / Rh type are not avail able for addit ional verif icati on. Not Available [facility] ([facility]) [address], [place], [address], 03/08/2024 10:16:26 03/04/20 24 03/05/2024 PREGN AICHA, INITI AL SCREE N antibody screen Negati ve negati ve Not Available [facility] ([facility]) [address], [place], [address], 03/08/2024 10:16:26 03/04/20 24 03/05/2024 PREGN AICHA, INITI AL SCREE N HIV Ab/P24 Ag screen Non Reacti ve non reacti ve HIV-1 /HIV- 2 antib odies and HIV-1 p24 antig en were NOT detec kanika. There is no labor atory evide nce of HIV infec tion. HIV Negat josue Not Available [facility] ([facility]) [address], [place], [address], 03/08/2024 10:16:26 03/04/20 24 03/05/2024 PREGN AICHA, INITI AL SCREE N chlamydia trachomatis, GWEN COMMEN T Test not perfo rmed. No speci men recei herve. Not Available [facility] ([facility]) [address], [place], [address], 03/08/2024 10:16:26 03/04/20 24 03/05/2024 PREGN AICHA, INITI AL SCREE N neisseria gonorrhoeae, GWEN COMMEN T Test not perfo rmed. No speci men recei herve. Not Available [facility] ([facility]) [address] [place], [address], 03/08/2024 10:16:26 03/04/20 24 03/05/2024 PREGN AICHA, INITI AL SCREE N WBC 7.5 x10e3 /uL 3.4-10 .8 normal Not Available [facility] ([facility]) [address] [place], [address], 03/08/2024 10:16:26 03/04/20 24 03/05/2024 PREGN AICHA, INITI AL SCREE N RBC 4.58 x10e6 /uL 3.77-5 .28 normal Not Available [facility] ([facility]) [address] [place], [address], 03/08/2024 10:16:26 03/04/20 24 03/05/2024 PREGN AICHA, INITI AL SCREE N hemoglobin 14.0 g/dL 11.1-1 5.9 normal Not Available [facility] ([facility]) [address] [place], [address], 03/08/2024 10:16:26 03/04/20 24 03/05/2024 PREGN AICHA, INITI AL SCREE N hematocrit 42.1 % 34.0-4 6.6 normal Not Available [facility] ([facility]) [address] [place], [address], 03/08/2024 10:16:26 03/04/20 24 03/05/2024 PREGN AICHA, INITI AL SCREE N MCV 92 fL 79-97 normal Not Available [facility] ([facility]) [address] [place], [address], 03/08/2024 10:16:26 03/04/20 24 03/05/2024 PREGN AICHA, INITI AL SCREE N MCH 30.6 pg 26.6-3 3.0 normal Not Available [facility] ([facility]) [address] [place], [address], 03/08/2024 10:16:26 03/04/20 24 03/05/2024 PREGN AICHA, INITI AL SCREE N MCHC 33.3 g/dL 31.5-3 5.7 normal Not Available [facility] ([facility]) [address] [place], [address], 03/08/2024 10:16:26 03/04/20 24 03/05/2024 PREGN AICHA, INITI AL SCREE N RDW 12.8 % 11.7-1 5.4 Not Available [facility] ([facility]) [address], [place], [address], 03/08/2024 10:16:26 03/04/20 24 03/05/2024 PREGN AICHA, INITI AL SCREE N platelets 187 x10e3 /uL 150-45 0 normal Not Available [facility] ([facility]) [address], [place], [address], 03/08/2024 10:16:26 03/04/20 24 03/05/2024 PREGN AICHA, INITI AL SCREE N neutrophils 69 % not estab. normal Not Available [facility] ([facility]) [address], [place], [address], 03/08/2024 10:16:26 03/04/20 24 03/05/2024 PREGN AICHA, INITI AL SCREE N lymphs 22 % not estab. normal Not Available [facility] ([facility]) [address], [place], [address], 03/08/2024 10:16:26 03/04/20 24 03/05/2024 PREGN AICHA, INITI AL SCREE N monocytes 7 % not estab. normal Not Available [facility] ([facility]) [address], [place], [address], 03/08/2024 10:16:26 03/04/20 24 03/05/2024 PREGN AICHA, INITI AL SCREE N eos 1 % not estab. normal Not Available [facility] ([facility]) [address], [place], [address], 03/08/2024 10:16:26 03/04/20 24 03/05/2024 PREGN AICHA, INITI AL SCREE N basos 0 % not estab. normal Not Available [facility] ([facility]) [address], [place], [address], 03/08/2024 10:16:26 03/04/20 24 03/05/2024 PREGN AICHA, INITI AL SCREE N immature cells DENTAL INTERN Not Available [facility] ([facility]) [address], [place], [address], 03/08/2024 10:16:26 03/04/20 24 03/05/2024 PREGN AICHA, INITI AL SCREE N neutrophils (absolute) 5.2 x10e3 /uL 1.4-7. 0 normal Not Available [facility] ([facility]) [address], [place], [address], 03/08/2024 10:16:26 03/04/20 24 03/05/2024 PREGN AICHA, INITI AL SCREE N lymphs (absolute) 1.6 x10e3 /uL 0.7-3. 1 normal Not Available [facility] ([facility]) [address] [place], [address], 03/08/2024 10:16:26 03/04/20 24 03/05/2024 PREGN AICHA, INITI AL SCREE N monocytes(ab solute) 0.5 x10e3 /uL 0.1-0. 9 normal Not Available [facility] ([facility]) [address] [place], [address], 03/08/2024 10:16:26 03/04/20 24 03/05/2024 PREGN AICHA, INITI AL SCREE N eos (absolute) 0.1 x10e3 /uL 0.0-0. 4 normal Not Available [facility] ([facility]) [address] [place], [address], 03/08/2024 10:16:26 03/04/20 24 03/05/2024 PREGN AICHA, INITI AL SCREE N baso (absolute) 0.0 x10e3 /uL 0.0-0. 2 normal Not Available [facility] ([facility]) [address], [place], [address], 03/08/2024 10:16:26 03/04/20 24 03/05/2024 PREGN AICHA, INITI AL SCREE N immature granulocytes 1 % not estab. Not Available [facility] ([facility]) [address], [place], [address], 03/08/2024 10:16:26 03/04/20 24 03/05/2024 PREGN AICHA, INITI AL SCREE N immature grans (abs) 0.0 x10e3 /uL 0.0-0. 1 Not Available [facility] ([facility]) [address], [place], [address], 03/08/2024 10:16:26 03/04/20 24 03/05/2024 PREGN AICHA, INITI AL SCREE N NRBC DENTAL INTERN Not Available [facility] ([facility]) [address], [place], [address], 03/08/2024 10:16:26 03/04/20 24 03/05/2024 PREGN AICHA, INITI AL SCREE N hematology comments: DENTAL INTERN Not Available [facility] ([facility]) [address], [place], [address], 03/08/2024 10:16:26 03/04/20 24 03/05/2024 PREGN AICHA, INITI AL SCREE N specific gravity COMMEN T Test not perfo rmed. No speci men recei herve. Not Available [facility] ([facility]) [address], [place], [address], 03/08/2024 10:16:26 03/04/20 24 03/05/2024 PREGN AICHA, INITI AL SCREE N pH COMMEN T Test not perfo rmed. No speci men recei herve. Not Available [facility] ([facility]) [address], [place], [address], 03/08/2024 10:16:26 03/04/20 24 03/05/2024 PREGN AICHA, INITI AL SCREE N urine-color COMMEN T Test not perfo rmed. No speci men recei herve. Not Available [facility] ([facility]) [address], [place], [address], 03/08/2024 10:16:26 03/04/20 24 03/05/2024 PREGN AICHA, INITI AL SCREE N appearance COMMEN T Test not perfo rmed. No speci men recei herve. Not Available [facility] ([facility]) [address], [place], [address], 03/08/2024 10:16:26 03/04/20 24 03/05/2024 PREGN AICHA, INITI AL SCREE N WBC esterase COMMEN T Test not perfo rmed. No speci men recei herve. Not Available [facility] ([facility]) [address], [place], [address], 03/08/2024 10:16:26 03/04/20 24 03/05/2024 PREGN AICHA, INITI AL SCREE N protein COMMEN T Test not perfo rmed. No speci men recei herve. Not Available [facility] ([facility]) [address], [place], [address], 03/08/2024 10:16:26 03/04/20 24 03/05/2024 PREGN AICHA, INITI AL SCREE N glucose COMMEN T Test not perfo rmed. No speci men recei herve. Not Available [facility] ([facility]) [address], [place], [address], 03/08/2024 10:16:26 03/04/20 24 03/05/2024 PREGN AICHA, INITI AL SCREE N ketones COMMEN T Test not perfo rmed. No speci men recei herve. Not Available [facility] ([facility]) [address], [place], [address], 03/08/2024 10:16:26 03/04/20 24 03/05/2024 PREGN AICHA, INITI AL SCREE N occult blood COMMEN T Test not perfo rmed. No speci men recei herve. Not Available [facility] ([facility]) [address], [place], [address], 03/08/2024 10:16:26 03/04/20 24 03/05/2024 PREGN AICHA, INITI AL SCREE N bilirubin COMMEN T Test not perfo rmed. No speci men recei herve. Not Available [facility] ([facility]) [address], [place], [address], 03/08/2024 10:16:26 03/04/20 24 03/05/2024 PREGN AICHA, INITI AL SCREE N urobilinogen ,semi-qn COMMEN T mg/dL Test not perfo rmed. No speci men recei herve. Not Available [facility] ([facility]) [address], [place], [address], 03/08/2024 10:16:26 03/04/20 24 03/05/2024 PREGN AICHA, INITI AL SCREE N nitrite, urine COMMEN T Test not perfo rmed. No speci men recei herve. Not Available [facility] ([facility]) [address] [place], [address], 03/08/2024 10:16:26 03/04/20 24 03/05/2024 PREGN AICHA, INITI AL SCREE N microscopic examination COMMEN T Test not perfo rmed. No speci men recei herve. Not Available [facility] ([facility]) [address] [place], [address], 03/08/2024 10:16:26 03/04/20 24 03/05/2024 PREGN AICHA, INITI AL SCREE N microscopic examination COMMEN T Test not perfo rmed. No speci men recei herve. Not Available [facility] ([facility]) [address], [place], [address], 03/08/2024 10:16:26 03/04/20 24 03/07/2024 PREGN AICHA, INITI AL SCREE N urine culture,pren atal, w/gbs Final report Not Available [facility] ([facility]) [address], [place], [address], 03/08/2024 10:16:26 03/04/20 24 03/07/2024 PREGN AICHA, INITI AL SCREE N result 1 COMMEN T Mixed uroge nital gena 25,00 0-50, 000 colon y formi ng units per mL Not Available [facility] ([facility]) [address], [place], [address], 03/08/2024 10:16:26 03/04/20 24 03/05/2024 VARIC ASHLEE- [...] stage of disea se. Not Available [facility] ([facility]) [address], [place], [address], 03/08/2024 10:16:29 03/04/20 24 03/08/2024 URINE CULTU RE, ROUTI NE urine culture, routine Final report Not Available [facility] ([facility]) [address], [place], [address], 03/08/2024 10:16:32 03/04/20 24 03/08/2024 URINE CULTU RE, ROUTI NE result 1 No growth Not Available [facility] ([facility]) [address], [place], [address], 03/08/2024 10:16:32 03/04/20 24 03/05/[address] PROBL EM request problem COMMEN T Test not perfo rmed. No speci men recei herve. TEST: [id number] Chlam ydia trach omati s, GWEN Panel : 95276 3 77379 6 Neiss eria gonor rhoea e, GWEN Panel : 78974 3 84384 0 Speci fic Gravi ty Panel : 49624 3 72927 8 pH Panel : 10006 3 98212 5 Urine -Hinckley r Panel : 53990 3 58665 2 Appea glenn Panel : 02472 3 01963 5 WBC Nette ase Panel : 36135 3 69533 4 Prote in Panel : 11020 3 35686 6 Gluco se Panel : 93378 3 45351 0 Keton es Panel : 58381 3 83302 2 Occul t Blood Panel : 45243 3 97126 4 Bilir ubin Panel : 79622 3 18520 5 Urobi linog en,Se mi-Qn Panel : 40733 3 75382 6 Nitri te, Urine Panel : 36051 3 74325 7 Micro scopi c Exami natio n Panel : 81269 3 86101 6 Micro scopi c Exami natio n Panel : 98748 3 Not Available [facility] ([facility]) [address], [place], [address], 03/08/2024 10:16:35 03/07/20 24 03/07/2024 PANOR AMA PRENA JAMEL TEST report summary LOW RISK normal LOW RISK Not Available [facility] [address], [place], [address], 03/14/2024 10:46:07 03/07/20 24 03/07/2024 PANOR AMA PRENA JAMEL TEST report note See Notes normal Not Available [facility] [address], [place], [address], 03/14/2024 10:46:07 07/29/20 24 03/07/2024 PANOR AMA PRENA JAMEL TEST trisomy 13 age-based risk text 62 1 (0.02% ) normal Not Available [facility] [address], [place], [address], 03/14/2024 10:46:07 03/07/20 24 03/07/2024 PANOR AMA PRENA JAMEL TEST trisomy 13 risk score text <1/10, 000 (<0.01 %) normal Not Available [facility] [address], [place], [address], 03/14/2024 10:46:07 03/07/20 24 03/07/2024 PANOR AMA PRENA JAMEL TEST trisomy 13 result text Low Risk normal Not Available [facility] [address], [place], [address], 03/14/2024 10:46:07 03/07/20 24 03/07/2024 PANOR AMA PRENA JAMEL TEST trisomy 18 age-based risk text 76 5 (0.06% ) normal Not Available [facility] [address], [place], [address], 03/14/2024 10:46:07 03/07/20 24 03/07/2024 PANOR AMA PRENA JAMEL TEST trisomy 18 risk score text <1/10, 000 (<0.01 %) normal Not Available [facility] [address], [place], [address], 03/14/2024 10:46:07 03/07/20 24 03/07/2024 PANOR AMA PRENA JAMEL TEST trisomy 18 result text Low Risk normal Not Available [facility] [address], [place], [address], 03/14/2024 10:46:07 03/07/20 24 03/07/2024 PANOR AMA PRENA JAMEL TEST trisomy 21 age-based risk text 0 (0.11% ) normal Not Available [facility] [address], [place], [address], 03/14/2024 10:46:07 03/07/20 24 03/07/2024 PANOR AMA PRENA JAMEL TEST trisomy 21 risk score text <1/10, 000 (<0.01 %) normal Not Available [facility] [address], [place], [address], 03/14/2024 10:46:07 03/07/20 24 03/07/2024 PANOR AMA PRENA JAMEL TEST trisomy 21 result text Low Risk normal Not Available [facility] [address], [place], [address], 03/14/2024 10:46:07 03/07/20 24 03/07/2024 PANOR AMA PRENA JAMEL TEST monosomy X age-based risk text 1/255 (0.39% ) normal Not Available [facility] [address], [place], [address], 03/14/2024 10:46:07 03/07/20 24 03/07/2024 PANOR AMA PRENA JAMEL TEST monosomy X risk score text <1/10, 000 (<0.01 %) normal Not Available [facility] [address], [place], [address], 03/14/2024 10:46:07 03/07/20 24 03/07/2024 PANOR AMA PRENA JAMEL TEST monosomy X result text Low Risk normal Not Available [facility] [address], [place], [address], 03/14/2024 10:46:07 03/07/20 24 03/07/2024 PANOR AMA PRENA JAMEL TEST 22Q11.2 deletion syndrome population-b ased risk text 2,00 0 normal Not Available [facility] [address], [place], [address], 03/14/2024 10:46:07 03/07/20 24 03/07/2024 PANOR AMA PRENA JAMEL TEST 22Q11.2 deletion syndrome risk score text 08/21,0 00 normal Not Available [facility] [address], [place], [address], 03/14/2024 10:46:07 03/07/20 24 03/07/2024 PANOR AMA PRENA JAMEL TEST 22Q11.2 deletion syndrome result text Low Risk normal Not Available [facility] [address], [place], [address], 03/14/2024 10:46:07 03/07/20 24 03/07/2024 PANOR AMA PRENA JAMEL TEST triploidy result text Low Risk normal Not Available [facility] [address], [place], [address], 03/14/2024 10:46:07 03/07/20 24 03/07/2024 PANOR AMA PRENA JAMEL TEST gender of fetus Female Not Available [facility] [address], [place], [address], 03/14/2024 10:46:07 03/07/20 24 03/07/2024 PANOR AMA PRENA JAMEL TEST fraction 7.4% Not Available [facility] [address], [place], [address], 03/14/2024 10:46:07 03/07/20 24 03/07/2024 PANOR AMA [...] Laboratories [address], [place], [address], 03/14/2024 10:46:07 03/07/20 24 03/07/2024 SHERWIN MCCULLOUGH [...] of this test were perfo rmed by [employer], [employer] [address], [place] [address] (CLIA ID [id number] ). The data syed sis and repor ting of this test were perfo rmed by [employer] [address], [place] [address] (CLIA ID [id number] ). The perfo rmanc e luisito cteri stics of this test were devel oped by [employer] CLIA ID [id number] ). This test has not been clear ed or appro herve by the U.S. Food and Drug Admin istra tion (FDA) . These labor atori es are regul ated under CLIA as quali fied to perfo rm high- compl exity testi ng. 2020 [employer] All Right s Reser herve. Pleas [...] for the NIPT khai ic couns elor donor services team leader. Not Available [facility] [address], [place], [address], 03/14/2024 10:46:07 03/25/20 24 03/25/2024 PAP + [...] tion. Clini Lynne fo :Jocelyn walls scree suhk Elect lorenzo gaytan wilman d by : Gale souza Natalia CT (ASCP ) on :03/11 09:31 :30 AM Not Available [facility] [address], [place], [address], 04/04/2024 10:18:06 03/25/20 24 04/04/2024 PAP + [...] LESIO N OR MALIG BERNARDA Not Available [facility] [address], [place], [address], 04/04/2024 10:18:06 03/25/20 24 04/04/2024 PAP + CT/NG W REFLE X HRHPV AND GENOT YPE (16+ 18/45 ) FOR ASCUS OR LSIL chlamydia result Negati ve Not Available [facility] [address], [place], [address], 04/04/2024 10:18:06 03/25/20 24 04/04/2024 PAP + CT/NG W REFLE X HRHPV AND GENOT YPE (16+ 18/45 ) FOR ASCUS OR LSIL gonorrhea result Negati ve Not Available [facility] [address], [place], [address], 04/04/2024 10:18:06 02/22/20 24 02/22/2024 ultra sound image s RAD [email or web address] [facility] [employer] [id number] 02/22/2024 12:26:19 02/22/20 US, obste tric No observ ation record ed. [email or web address] Not Available 02/21 12:27:31 Result Notes None recorded. Problems Name Problem SNOMED Code Status Onset Date Resolution Date Notes Provider Name and Address Organization Details Recorded Time 77716732 Completed 202303/28/2024 Bernarda Hurtado [facility] 12:16:49 Genetic screening for disorder Completed Desires NIPT: low risk, female Declined CS DAKOTA-FRANCIS FERNANDEZ, [employer] [address], [place], [address], [facility] 4 11:56:17 Migraine [id number] Completed w/aura Dragan Price [facility] 4 09:49:09 Problem Notes None recorded. Procedures Surgical History Date Name Laterality Status Provider Name and Address Organization Details Recorded Time 08/10/19 Date of Last Pap Smear completed Dragan Price [facility] 03/04/2024 09:42:51 Appendectomy completed Margret Bustamante [facility] 02/26/2024 11:23:55 Imaging Results Imaging Date Name Status LastModified by Organiz ation Details LastModified Time 02/22/2024 ultrasound images completed [email or web address] [facility] [employer] [id number] 02/22/2024 12:26:19 02/22/2024 US, obstetric completed [email or web address] Information not available 02/22/2024 12:27:31 Procedure Notes [...] Address Organization Details Last Updated DateTime 03/04/2024 72665.41 g 23.7 kg/m2 172.72 cm 122 mm[Hg] 60 mm[Hg] Katarina Dubon [facility] 4 09:16:38 Date Recorded Body height Body mass index (BMI) Body weight Systolic blood pressure Diastolic blood pressure Provider Name and Address Organization Details Last Updated DateTime 03/25/2024 172.72 cm 24.3 kg/m2 12276.78 g 122 mm[Hg] 70 mm[Hg] Yo Correa [facility] 4 14:04:07 Social History Question Answer Notes LastModified by Organizat ion Details LastModified Time Tobacco Smoking Status Never Smoker Margret sharma [facility] 02/26/2024 11:27:11 Do You Have An Advance [...] not available 03/04/2024 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 No [email or web address] Information not available 03/04/2024 Sex: Unknown Functional [...] available 2023 11:22:55 Medical History Condition Response Urology- Urinary Incontinence Y Neurology- Headaches/Migraines Y Gynecological History Statement/Question Response Do you [...] SNOMED-CT Code Diagnosis ICD10 Code Diagnosis Note [id number] DOREEN FERNANDEZ APRN [id number] [facility] [address] [place] [address] 03/04/2024 09:02:22 03/04/2024 09:55:09 Routine care [id number] Z34.81 [id number] YAYO JOSEPH MD [id number] [place] [facility] [address] [place] [address] 03/25/2024 13:56:37 03/25/2024 14:22:38 Routine care [id number] Z34.02 Z34.03 Z34.82 Z34.83 Health Concerns Section Related Observation LastModified by Organization Detai ls LastModified Time None Recorded Concern Status LastModified by Organization Details LastModified Time None Recorded Advance Directives Directive N: Payers Encounter Date Sequence Insurance Name Policy Number Policy Atkins Covered Member ID Atkins Member ID Guarantor Name 03/04/2024 1 [employer] (PPO) [id number] Rosibel A Emi [id number] [facility] 03/25/2024 1 [employer] (PPO) [id number] Rosibel A Emi [id number] [facility] OBGyn Episode Ob Episode Information Episode Created Date Number of Fetuses Patient Bloodtype Patient rh Status Prepregnancy Weight lbs Domestic Partner Domestic Partner Phone Father Name [employer] Status 02/22/20 24 1 O Positive 151 N[address]em [place] CLOSED Fetus Data First Name Last Name Admitted to NICU Weight (g) Sex Living Outcome Pediatric Complications Fetus ID Race Codes Race Delivery Type [id number] Problems Problem Notes Problem Name Start Date End Date Resolution Snomed Code Not e Migraine [id number] w/aura Genetic screening for disorder [id number] Desires NIPT: l ow risk, femaleDeclined CS [...] Date Ultra Sound Latest Days Gestation 0 [id number] 02/22/2024 10/01/19 25 0 Pre-munir Flowsheet Flowsheet Date 03/04/2024 Hull Score Blood Edema Fundus Height Fundus Units Glucose Ketones Leukocytes Nitrite Labor Signs Protein Cervic Dilation Cervic Effacement Cervic Station none neg Type Weight in lbs Pre/Post Dialysis Refused Weight 156.380428344636 BP Diastolic BP Location Tested BP Systolic [...] and Zika. NOB PE scheduled w/.JORGE. NNAMDI GUN. Flowsheet Date 03/25/2024 Hull Score Blood Edema Fundus Height Fundus Units Glucose Ketones Leukocytes Nitrite Labor Signs Protein Cervic Dilation Cervic Effacement Cervic Station 12 wks none neg 0cm 0% -4 Type Weight in lbs Pre/Post Dialysis Refused Weight 160.487178165390 BP Diastolic BP Location Tested BP Systolic [...] Since Last Menstrual Perio d false Thalassemia (Georgian, Mohawk, Mediterranean, Or Background): MCV < 80 false [...] Sickle Cell Disease Or Trait () false Macy's Chorea false Maternal Metabolic Disorder (eg, Type 1 Diabetes , PKU) false Patient Or Partner Has History Of Genital Herpes false History of Hepatitis B, C or HIV false Lorenzo-Sachs (eg, Presybeterian, Cajun, Ukrainian-[place]andeeville) f alse Cystic Fibrosis false Medications (including Suppl ements, Vitamins, Herbs, OTC Drugs), Illicit/Recreational Drugs, Alcohol true PNV Other Infection History false History of HIV false History of Hepatitis false Prior GBS-infected child false Plans and Education First Trimester Discussed Date Discussion Item Discussion Note Discuss ed By 03/04/2024 Anticipated course of care [facility]03/04/2024 Alcohol [facility]03/04/2024 Environmental/work hazards f arr 03/04/2024 Screening for aneuploidy [facility] 03/04/2024 Nutrition counseling ; special diet; dietary precautions (mercury, listeriosis) [facility]03/04/2024 Childbirth classes/hospital facilities [facility]03/04/2024 HIV and other routine tests [facility]03/04/2024 Risk factors identif ied by history [facility]03/04/2024 Weight gain counseling 25-35 lbs [facility]03/04/2024 Exercise [facility]03/04/2024 Teratogens [facility]03/04/2024 Use of any medicatio ns (including supplements, vitamins, herbs, or OTC drugs) PNV [facility]03/04/2024 Sexual activity [facility]03/04/2024 Tobacco/smoking cess ation counseling (ask, advise, assess, assist, and arrange) [facility]03/04/2024 Illicit/recreational drugs f [email or web address] 03/04/2024 Dental care [facility]03/04/2024 Travel [facility]03/04/2024 Seat belt use [facility]03/04/2024 Indications for ultrasonography [facility]03/04/2024 Avoidance of saunas or hot tubs [facility]03/04/2024 Toxoplasmosis precautions (cats/raw meat) [email or web address] Second Trimester Discussed Date Discussion Item Discussion [...]
--- OUTSIDE RECORDS SUMMARY | 2024-10-22 13:49 | XMS_ITS | Clinical Summary ---
Author Organization [facility] Address [address] [place] [address] Care Team Providers Care Air Sampler Name Role Phone Esther Martin MD Primary [...] Department Care Team Description 08/17/2024 3:30 PM DANCE HALL HOSTESS Office Visit [facility] [address] [place] [address] [place] [phone] Abad Martinez MD Dyspnea, unspecified type [...] Comments Blood Pressure 100/60 08/17/2024 3:38 PM DANCE HALL HOSTESS Pulse 88 08/17/2024 3:38 PM DANCE HALL HOSTESS Temperature - - Respiratory Rate - - Oxygen Saturation 96% 05/12/2024 12:33 PM CDT Inhaled Oxygen Concentration - - Weight 82.8 kg (182 lb 9.6 oz) 08/17/2024 3:38 P M DANCE HALL HOSTESS Height 175.3 cm (5' 9.02 ) 08/17/2024 3:38 PM CS T Body Mass Index 26.95 08/17/2024 3:38 PM DANCE HALL HOSTESS Plan of Treatment Health Maintenance Due Date [...] patient's age to complete this topic Insurance [facility] Care Teams Air Sampler Relationship Specialty Start Date End Date Esther Martin MD [address] [place] [address] PCP - General Gynecology 04/14/24
[2024-10-22 13:56] VITALS: BP 115/72; PULSE 92; RESP 17; TEMP 36.2; O2SAT 96
--- NOTE | 2024-10-22 14:05 | ED_ITS ---
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 Patient is approximately 1 month she had a spontaneous vaginal del lauren on 09/23/2024. Patient did have multiple sutures put in for tearing. patient does have a history of vulvodynia symptoms she stated are similar to this but seem more intense. It does tend to flare up when she has increased stress or anxiety per the patient. States that her vaginal odor is stronger than normal but did not notice a distinct difference in the type of the smell. Does still have some slight vaginal bleeding . patient is tearful on exam. Has not had follow-up with primary OB as of yet. She does feel anxious and overwhelmed at home at this time. A lot of it has to do with her being out of town and this is the 1st week and that she is home alone. States she does have support system but there about 2 hours away at this time. Denies homicidal or suicidal ideation. Related Data Home Medications ?Medication ?Instructions ?Recorded ?Confirmed ?Last Taken ?Type No Home Medications 10/22/24 10/22/24 Unknown History Allergies Allergy/AdvReac Type Severity Reaction Status Date / Time No Known Allergies Allergy Verified 10/22/24 13:57 Review of Systems Review of Systems: All systems reviewed & are unremarkable except as noted in HPI and below Eyes: Eyes: Reports as per HPI ENT: Reports as per HPI Cardiovascular: Cardiovascular: Reports as per HPI Respiratory: Respiratory: Reports as per HPI Genitourinary: Genitourinary: Reports as per HPI Musculoskeletal: Musculoskeletal: Reports as per HPI Integumentary/Breasts: Skin/Breast: Reports as per HPI Neurologic: Reports as per HPI Psychiatric: Psychiatric: Reports as per HPI Endocrine: Endocrine: Reports as per HPI Hematologic/Lymphatic: Hematologic/Lymphatic: Reports as per HPI Allergic/Immunologic: Allergic/Immunologic: Reports as per HPI PMFSH Past Medical History Medical History IUP (intrauterine ), incidental Vulvodynia Surgical History Surgical History History of appendectomy Family History Family History Grandparent Breast cancer Mother Diabetes mellitus Social History Social History Smoking status: Never smoker Substance use: never Do You Feel Safe in your Home?: Yes Lack of Transportation: No Lack of Food: Never True Current Housing: I Have Housing Concerned About Future Housing: No Difficulty Paying Gas/Electric Bills: No Difficulty Paying for Meds: No Currently Unemployed: No Education: Master's Degree or Higher Difficulty w/ Childcare or Family Care: No Spiritual care concerns: No Exam Const: General: cooperative, healthy appearing, comfortable, no acute distress and well developed Orientation/consciousness: patient oriented x3 HENMT: Head: normal to inspection Eyes: General: appearance normal, both eyes and all related structures Resp: Effort & Inspection: normal respiratory effort and able to speak in complete sentences : External Female Exam: No erythema, No external swelling and other ( sutures noted to anterior labia adjacent to the clitoris. No discharge) Manual OB Exam: Deferred manual OB exam Other: deferred pelvic exam with a speculum at this time Skin: General skin exam: normal color Neuro: General: patient oriented x3 Cognition (Neuro): normal cognition Speech: normal speech Psych: Mental Status: mental status grossly normal Course Course Level of Care: Express Care Visit Vital Signs Vital signs: Vital Signs Temperature 97.2 F L 10/22/24 13:56 Pulse Rate 92 10/22/24 13:56 Respiratory Rate 17 10/22/24 13:56 Blood Pressure 115/72 10/22/24 13:56 Pulse Oximetry 96 10/22/24 13:56 Oxygen Delivery Room Air 10/22/24 13:56 Temperature 97.2 F L 10/22/24 13:56 Pulse Rate 92 10/22/24 13:56 Respiratory Rate 17 10/22/24 13:56 Blood Pressure 115/72 10/22/24 13:56 Pulse Oximetry 96 10/22/24 13:56 Oxygen Delivery Room Air 10/22/24 13:56 MDM - Female Genitourinary MDM Narrative Medical decision making narrative: 21-year-old female HPI as noted. Differentials include hold any accommodate vaginitis, bacterial vaginosis, vaginal yeast infection, vulvodynia, cellulitis. External vaginal exam shows no erythema, no abnormal discharge, suture noted to anterior vaginal wall Without erythema or discharge to that area either which is noted in delivery record. No odor noted. patient was tearful during assessment prior to pelvic exam. Concurrently by herself for the weekend as her is out of town. She is breast feeding. Has not followed up with OB yet. Denies suicidal or homicidal ideations. At this time since there is no sign of acute infection and I do not have a diagnosis of bacterial vaginosis no treatment will be necessary. Patient is aware is of 12 come back positive so we will call and will treat accordingly. She is currently doing Dermoplast with witch Hermelinda and Sitz baths. I encouraged continuation of this. Also usage of Tylenol and or ibuprofen was discussed to help with pain. No abnormal vaginal bleeding. Follow-up with OB. Medical Records Attestation: I reviewed the patient's medical records. Discharge Plan Discharge Clinical Impression: History of vulvodynia, Vulvodynia Patient Disposition: Home, Self-Care Condition: Stable Instructions: Antibiotic Form, Depression (DC) Additional Instructions: Your exam today showed no abnormal discharge although we did do swabs for yeast and bacterial vaginosis. No indications of infection to the vaginal area or where her sutures are. He is still due has some dissolvable sutures near the clitoris. Due to motion with symptoms being near the suture line and patient being about 1 month no internal pelvic exam at this time. There is no abnormal bleeding. At this time ear exam looks good normal. If the bacterial vaginosis or yeast is present someone will call and he will be treated accordingly. Please continue to do your Sitz baths, Dermoplast, Tylenol and or ibuprofen for pain. Please discuss with your primary care or OB about possible depression. Please follow-up with your OB for continued symptoms or concerns. Patient Language: Polish Prescriptions: No Action No Home Medications Follow-up/Referrals: UNKNOWN,DOCTOR [Primary Care Provider] - Time of Disposition: 14:44
[2024-10-24 15:59] LABS: Bacterial Vaginosis POSITIVE (NEGATIVE)
== END 2024-10-22 14:47 | disposition home or self-care (01) ==
PROVIDERS: Emergency Provider Nurse Practitioner Family
DX: O90.89 Other complications of the puerperium, not elsewhere classified (principal); N94.819 Vulvodynia, unspecified; O86.13 Vaginitis following delivery
CPT/HCPCS: 81513; 87102; 99213; G0463

== ENCOUNTER 2024-12-09 09:00 | Outpatient (RCR) | payer BC, SELFPAY ==
--- NOTE | 2024-11-11 10:38 | OPREHPOC ---
Outpatient Therapy Plan of Care This is a Multidisciplinary Plan of Care that may contain components documented by all disciplines (PT, OT, and ST.) PT Problem 1 PT Problem #1 Knowledge Deficit PT Goal 1 Goal / Goal Update 1. Patient will perform independent HEP Target Visit 2 PT Problem 2 PT Problem #2 Pain PT Goal 1 Goal / Goal Update 1. Patient will report no pelvic pain with sitting 2. Patient will demonstrate normal pelvic floor muscle tone 3. Patient will report no functional limitation with daily activities due to pain Target Visit 3 PT Problem 3 PT Problem #3 Impaired Strength PT Goal 1 Goal / Goal Update 1. Improve diastasis to 2 finger width or less Target Visit 3
--- NOTE | 2024-11-11 10:38 | PTOPEVAL1 ---
Assessment and note entered by Sujata Dykes DPT Evaluation Information Assessment Status Evaluation ICD-10 Condition Codes (PT) Weakness R53.1,Pelvic and perineal pain R10.2 Subjective Information Pt reports history of pelvic pain and improvements with therapy. Has been diagnosed with vulvodynia. Delivered baby vaginally in September 2024, first baby. Reports she had 2 minor tears. Highest pain recently 8-9/10 and lowest 0/10. Voids 5-6 times a day and none at night. Can hold urge to void as long as needed. Denies pain with urination but feels a tightness . BM typically daily, denies pain. History of some constipation. Has not had sex since delivery but expects it would hurt, did have some mild discomfort with last pelvic exam. Patient goal: check on progress with pelvic floor and manage symptoms Returns to MD in 6 months. Reported Pain Level Pain Score 0: Self Report Assessment PT Clinical Summary The patient is presenting to skilled therapy with pelvic pain following a vaginal delivery in September. She reports PMH of vulvodynia. She presents with increased pelvic floor muscle tone and decreased abdominal strength. These impairments are contributing to her pain and she will highly benefit from therapy to eliminate pain and return to full function. Plan of Care Interventions Electrical Stimulation,Hot Pack/Cold Pack,Manual Therapy,Neuro Re-education,Patient/Caregiver Education,Therapeutic Activities,Therapeutic Exercise PT Services Indicated Yes Treatment Frequency and 1 visit every other week x 3 visits total Duration These treatments will address the objective and functional deficits as defined above. The patient will be advanced safely and appropriately in order for the patient to progress towards his/her prior level of function. Additional exercises will be introduced and as well as a comprehensive home exercise program upon discharge, if needed, ?to ensure carryover of functional gains achieved in the clinic. This treatment plan has been reviewed and agreement upon by the patient.
--- NOTE | 2024-12-09 09:44 | OPREHPOC ---
Outpatient Therapy Plan of Care This is a Multidisciplinary Plan of Care that may contain components documented by all disciplines (PT, OT, and ST.) PT Problem 1 PT Problem #1 Knowledge Deficit PT Goal 1 Goal / Goal Update 1. Patient will perform independent HEP Target Visit 2 Progress Met PT Problem 2 PT Problem #2 Pain PT Goal 1 Goal / Goal Update 1. Patient will report no pelvic pain with sitting 2. Patient will demonstrate normal pelvic floor muscle tone 3. Patient will report no functional limitation with daily activities due to pain Target Visit 3 Progress Met PT Problem 3 PT Problem #3 Impaired Strength PT Goal 1 Goal / Goal Update 1. Improve diastasis to 2 finger width or less Target Visit 3 Progress Met
--- NOTE | 2024-12-09 09:44 | PTOPDC ---
Assessment and note entered by Sujata Dykes DPT Evaluation Information Assessment Status Discharge ICD-10 Condition Codes (PT) Weakness R53.1,Pelvic and perineal pain R10.2 Subjective Information Pt denies pelvic pain in the last week. Voiding 5 times a day and can hold urge as long as needed. No pain or tightness with urination or BM. Has had very minor pain with intercourse which is improved with lubricant. Reported Pain Level Pain Score 0: Self Report Assessment PT Clinical Summary The patient has made excellent progress in therapy . She reports no recent pelvic pain and no urinary issues. She demonstrates improved abdominal strength and diastasis closure, normal pelvic floor muscle tone and no pain on exam. Due to her progress, discharge is recommended at this time. She has been educated in a thorough HEP and to follow up with MD and/or PT as needed. Plan of Care PT Services Indicated No
== END 2024-12-09 10:26 | disposition home or self-care (01) ==
LOC: ANHPT 09:00
PROVIDERS: Visit Provider Obstetrics & Gynecology
DX: R53.1 Weakness (principal); R10.2 Pelvic and perineal pain
CPT/HCPCS: 97110; 97112; 97161; 97530

== ENCOUNTER 2025-03-13 09:52 | Emergency (ER) | payer BC, SELFPAY ==
--- NOTE | ~2025-03-13 | XR_ITS ---
XR lumbar spine 2-3V 03/13/2025 10:26 Indication: Low back pain Procedure: 3 views lumbar spine Comparison: No prior studies for comparison. Findings: Vertebral body heights are maintained. Pedicles intact. No fracture, subluxation or disloca tion. No evidence for spondylolysis or spondylolisthesis. Impression: 1: No acute abnormality of the lumbar spine. Reviewed, dictated and finalized at location A. Impression: 1: No acute abnormality of the lumbar spine.
--- NOTE | 2025-03-13 10:02 | ED.BACK ---
HPI - Back Pain/Injury General Chief Complaint: Back Pain/Injury Stated Complaint: back injury Source: patient Mode of arrival: ambulatory Limitations: no limitations History of Present Illness HPI Narrative: 29 y/o female presented for c/o low back pain. Onset yesterday while doing a squat jump. States she heard a 'click.' Pain is radiating to the left low back and hip. Endorses pain worse with any movement, and therefore mobility is limited. Occasionally feels tingling in both feet. Taking ibuprofen and Tylenol. Says she has had flares of back pain since high school. Has not had imaging. Has seen a chiropractor for this. Denies pain radiating into legs, numbness, tingling, weakness of the lower extremities, saddle paresthesia or loss of bowel or bladder. Related Data Allergies Allergy/AdvReac Type Severity Reaction Status Date / Time No Known Allergies Allergy Verified 03/13/25 10:07 Review of Systems Review of Systems: CONSTITUTIONAL: Denies body aches, fever, chills EYES: Denies visual changes CARDIOVASCULAR: Denies chest pain, palpitations, or edema. RESPIRATORY: Denies cough or dyspnea. GASTROINTESTINAL: Denies abdominal pain, nausea, vomiting, or diarrhea. SKIN: Denies rash, itching, or wounds. MUSCULOSKELETAL: reports back pain NEUROLOGIC: Denies headache, numbness, tingling, or weakness. All systems reviewed & are unremarkable except as noted in HPI and below PMFSH Past Medical History Medical History Vulvodynia IUP (intrauterine ), incidental Surgical History Surgical History History of appendectomy Family History Family History Grandparent Breast cancer Mother Diabetes mellitus Social History Social History Smoking status: Never smoker Substance use: never Do You Feel Safe in your Home?: Yes Lack of Transportation: No Lack of Food: Never True Current Housing: I Have Housing Concerned About Future Housing: No Difficulty Paying Gas/Electric Bills: No Difficulty Paying for Meds: No Currently Unemployed: No Education: Master's Degree or Higher Difficulty w/ Childcare or Family Care: No Spiritual care concerns: No Comments At time of signature, I have reviewed and agree with nursing past medical, surgical, social and family history unless otherwise noted. Please see nursing chart for further information. There is no relevant family history pertinent to the presenting complaint Exam Narrative: GENERAL: Well-appearing NECK: Supple. full ROM CHEST: Speaks in full sentences. No respiratory distress. HEART: Regular rate and rhythm. Normal and equal peripheral pulses. MUSC: Right lumbar paraspinal tenderness with palpation. No Vertebral point tenderness. BLEs with normal strength and sensation, limited range of motion due to endorses pain with movement. No ecchymosis, No open wounds. pulse palpable and equal bilaterally, skin warm, dry, pink. Capillary refill less than 3 seconds. Gait is guarded, using w/c in clinic. SKIN: Warm, dry, no rash. NEURO: Alert and oriented x3. Course Course Emergency Course: Patient is aware of diagnosis, understands and agrees to treatment plan. Anticipatory guidance given. Patient agrees to follow-up as directed and is aware of reasons to seek care at the emergency department. Portions of this record may have been created with voice recognition software Level of Care: Express Care Visit Vital Signs Vital signs: Vital Signs Temperature 98.3 F 03/13/25 10:04 Pulse Rate 84 03/13/25 10:04 Respiratory Rate 14 03/13/25 10:04 Blood Pressure 129/69 03/13/25 10:04 Pulse Oximetry 100 03/13/25 10:04 Oxygen Delivery Room Air 03/13/25 10:04 Temperature 98.3 F 03/13/25 10:04 Pulse Rate 84 03/13/25 10:04 Respiratory Rate 14 03/13/25 10:04 Blood Pressure 129/69 03/13/25 10:04 Pulse Oximetry 100 03/13/25 10:04 Oxygen Delivery Room Air 03/13/25 10:04 Reviewed MDM - Back Pain/Injury MDM Narrative Medical decision making narrative: Xray reviewed with pt. Reviewed RX. Advised supportive measures and s/s to go to the ER. Pt is stable and appropriate for outpt treatment and follow up with pcp. Differential Diagnosis Differential diagnosis: Likely lumbar radiculopathy, sciatica, strain of lumbar region, renal colic, pyelonephritis and discitis Imaging Data Radiologist's impression: Patient: Rosibel Middleton : 1995 MR#: [id number] Age: 29 Acct:[id number] Loc: [facility] ADM Date: 03/13/25Attending Dr: Ordering Physician: Racquel May APRN Date of Service: 03/13/25 Procedure(s): XR lumbar spine 2-3V Accession Number(s): [id number] cc: Racquel May APRN; CASKET INSPECTOR PHYSICIAN~ XR lumbar spine 2-3V 03/13/2025 10:26 Indication: Low back pain Procedure: 3 views lumbar spine Comparison: No prior studies for comparison. Findings: Vertebral body heights are maintained. Pedicles intact. No fracture, subluxation or dislocation. No evidence for spondylolysis or spondylolisthesis. Impression: 1: No acute abnormality of the lumbar spine. Discharge Plan Discharge Clinical Impression: Low back pain Patient Disposition: Home Condition: Stable Instructions: Back Pain (ED) Additional Instructions: Please follow up with your Primary Care Doctor within 48-72 hours - call for an appointment. Avoid lifting. pushing. pulling, or anything that worsens the pain. Walking and other gentle exercising several times a week has been shown to improve back pain; strict bed rest is not recommended. Take Motrin 800mg every hours with food for the next 2-3 days, along with Tylenol 1000mg every 8 hours Take muscle relaxers every 8 hours as needed for muscle spasm- do not drive or make any important decisions while on this medication for it can make you drowsy. Over the counter pain cream like icy/hot or biofreeze, or Salon pas/lidocaine 4% patch. You may apply heat or cold to the area as needed. Go to the ER immediately for worsening symptoms: If you experience any worsening pain, swelling, numbness, weakness, problems with bladder or bowel function, weakness or loss of feeling in one or both of your legs, or any other serious concerns. Patient Language: Danish Prescriptions: New cyclobenzaprine 10 mg tablet 10 mg PO TID PRN (Reason: muscle spasm) Qty: 12 0RF prednisone 20 mg tablet 20 mg PO DAILY Qty: 12 0RF Rx Instructions: take 3 tablets daily for 2 days, then 2 tablets daily for 2 days then 1 tablet daily for 2 days Follow-up/Referrals: PHYSICIAN,CASKET INSPECTOR [Primary Care Provider] - Time of Disposition: 10:53
[2025-03-13 10:04] VITALS: BP 129/69; PULSE 84; RESP 14; TEMP 36.8; O2SAT 100
--- OUTSIDE RECORDS SUMMARY | 2025-03-13 10:06 | XMS_ITS | Clinical Summary ---
Author Organization [facility] Address [address] [place] [address] Care Team Providers Care Mimeograph Operator Name Role Phone Esther Martin MD Primary [...] Comments Blood Pressure 100/60 08/17/2024 3:38 PM BIOLOGICAL TECHNICIAN Pulse 88 08/17/2024 3:38 PM BIOLOGICAL TECHNICIAN Temperature - - Respiratory Rate - - Oxygen Saturation 96% 05/12/2024 12:33 PM CDT Inhaled Oxygen Concentration - - Weight 82.8 kg (182 lb 9.6 oz) 08/17/2024 3:38 P M BIOLOGICAL TECHNICIAN Height 175.3 cm (5' 9.02) 08/17/2024 3:38 PM CS T Body Mass Index 26.95 08/17/2024 3:38 PM BIOLOGICAL TECHNICIAN Plan of Treatment Health Maintenance Due Date Last Done Comments Cervical Cancer Screening 1996 Depression Screening 1996 Hepatitis C Screening 1996 DTaP/Tdap/Td Vaccine (1 - Tdap) 10/12/2007 Varicella Vaccines (1 of 2 - 13+ 2-dose series) 2009 Hepatitis B Screening 2014 Regular Well Visit/Exam 18-64 2014 HPV Vaccines (1 - 3-dose SCD M series) 10/12/2023 Influenza Vaccine (#1) 2025 Pneumococcal vaccine <65 Aged Out No longer eligible based on patient's age to complete this topic Insurance [facility] Care Teams Mimeograph Operator Relationship Specialty Start Date End Date Esther Martin MD [address]22 [address] [id number] PCP - General Gynecology 04/14/24
--- OUTSIDE RECORDS SUMMARY | 2025-03-13 10:06 | XMS_ITS | Referral Summary ---
Author Organization [facility] Address [address] [place] [address] Care Team Providers Care Valet Parker Name Role Phone Esther Martin MD Primary [...] Comments Blood Pressure 100/60 08/17/2024 3:38 PM MANAGEMENT LEAD Pulse 88 08/17/2024 3:38 PM MANAGEMENT LEAD Temperature - - Respiratory Rate - - Oxygen Saturation 96% 05/12/2024 12:33 PM CDT Inhaled Oxygen Concentration - - Weight 82.8 kg (182 lb 9.6 oz) 08/17/2024 3:38 P M MANAGEMENT LEAD Height 175.3 cm (5' 9.02) 08/17/2024 3:38 PM CS T Body Mass Index 26.95 08/17/2024 3:38 PM MANAGEMENT LEAD Plan of Treatment Not on file Insurance [facility] Care Teams Valet Parker Relationship Specialty Start Date End Date Esther Martin MD [address] [address] PCP - General Gynecology 04/14/24
== END 2025-03-13 11:02 | disposition home or self-care (01) ==
PROVIDERS: Emergency Provider Nurse Practitioner Family; Referring Provider Emergency Medicine
DX: M54.50 Low back pain, unspecified (principal)
CPT/HCPCS: 72100; 99213; G0463